=== PATIENT | male | born 1950 | race Caucasian/White ===

== ENCOUNTER 2018-04-01 08:25 | Inpatient (IN) | payer MEDICARE, BC ==
[2018-04-01] MEDS ORDERED: Aspirin 81 mg CHEW TAB* 81 MG TAB.CHEW PO ONE (09:38)
[2018-04-01] MEDS ORDERED: NS 0.9% 1000 ML* 1,000 ML IV SCH (09:45)
--- NOTE | 2018-04-01 09:55 | RAD ---
Indication: Chest pain. Single frontal view of the chest performed at 0945 hours was reviewed. Comparison is made with previous exam dated April 26, 2011. No mediastinal shift is noted. Heart is of normal size and configuration. Lung traore are clear. IMPRESSION: NO ACTIVE CARDIOPULMONARY DISEASE IS NOTED.
[2018-04-01 10:03] LABS: INR 0.93 (0.77-1.02)
[2018-04-01 10:10] LABS: ABS Basophils 0 10^3/ul (0-0.2); ABS Eosinophils 0.2 10^3/ul (0-0.6); ABS Lymphocytes 0.8 10^3/ul (1.0-4.8); ABS Monocytes 0.7 10^3/ul (0-0.8); ABS Neutrophils 3.7 10^3/ul (1.5-7.7); ABS Nucleated RBC 0 10^3/ul; Eosinophil % 4.4 % (0-6); Hematocrit 49 % (42-52); Hemoglobin 16.4 g/dl (14.0-18.0); Lymphocyte % 15.2 % (25-47); Mean Corpuscular HGB Conc 34 g/dl (31-36); Mean Corpuscular Hemoglobin 30 pg (27-31); Mean Corpuscular Volume 90 fL (80-94); Mean Platelet Volume 10.4 um3 (7.4-10.4); Nucleated Red Blood Cells % 0.1; Platelet Count 154 10^3/ul (150-450); Red Blood Count 5.41 10^6/ul (4.0-5.4); Red Cell Distribution Width 15 % (10.5-15); White Blood Count 5.5 10^3/ul (3.5-10.8)
[2018-04-01 10:11] LABS: EGFR Non-African American 69.9 (>60)
--- NOTE | 2018-04-01 12:56 | ED ---
Pablo Davila Stephanie, scribed for Chong Stein MD on 04/01/18 at 1022 . HPI Chest Pain - HPI Summary HPI Summary: The pt is a 67 y/o M presenting to the ED with c/o CP that began 1 week ago. The CP is located mid-sternally and radiates to the R shoulder. Symptoms include increased gas, diaphoresis and slight SOB. He denies nausea, LE edema and dyspnea at rest. His CP is aggravated by exertion and alleviated by rest. Last night his pain was rated as a 10/10 in severity. The pt was recently treated for PNA on February 14. He has been taking antacids to attempt to relieve his CP. - History of Current Complaint Chief Complaint: EDChestPainROMI Time Seen by Provider: 04/01/18 09:25 Hx Obtained From: Patient Onset/Duration: Started Weeks Ago - 1, Still Present Timing: Intermittent Current Severity: Mild Pain Intensity: 4 Pain Scale Used: 0-10 Numeric Chest Pain Location: Mid Sternal Chest Pain Radiates: Yes Chest Pain Radiates To:: Shoulder - R Character: Tightness Aggravating Factor(s): Exertion Alleviating Factor(s): Rest Associated Signs and Symptoms: Positive: Negative - dyspnea at rest, Chest Pain , Shortness of Breath, Diaphoresis. Negative: Nausea, Edema - LE - Allergy/Home Medications Allergies/Adverse Reactions: Allergies Allergy/AdvReac Type Severity Reaction Status Date / Time No Known Allergies Allergy Verified 04/01/18 08:57 Home Medications: Home Medications Metoprolol Succinate XL TAB* [Toprol XL TAB*] 25 mg PO BEDTIME 04/01/18 [ History Confirmed 04/01/18] PMH/Surg Hx/FS Hx/Imm Hx Cardiovascular History: Reports: Hx Hypercholesterolemia, Hx Hypertension - ON MEDS History: Reports: Hx Kidney Stones - LEFT, Other Problems/Disorders - ENLARGE PROSTATE Sensory History: Reports: Hx Contacts or Glasses - GLASSES Denies: Hx Hearing Aid Opthamlomology History: Reports: Hx Contacts or Glasses - GLASSES - Surgical History Surgery Procedure, Year, and Place: 07/02/2014 CYSTOSCOPY WITH LEFT STENT INSERTION, [facility] Hx Anesthesia Reactions: No Infectious Disease History: No Infectious Disease History: Denies: Traveled Outside the [place] in Last 30 Days - Family History Known Family History: Negative: Renal Disease - Social History Occupation: Retired Lives: With Family Alcohol Use: None Hx Substance Use: No Substance Use Type: Reports: None Hx Tobacco Use: No Smoking Status (MU): Never Smoked Tobacco Have You Smoked in the Last Year: No Review of Systems Positive: Skin Diaphoresis. Negative: Fever Positive: Chest Pain Respiratory: Negative - dyspnea at rest Positive: Shortness Of Breath Positive: Other - increased gas. Negative: Nausea Positive: Other - R shoulder pain. Negative: Edema - LE edema All Other Systems Reviewed And Are Negative: Yes Physical Exam - Summary Physical Exam Summary: General: well-appearing, no pain distress Skin: warm, color reflects adequate perfusion, dry Head: normal Eyes: EOMI, SAMSON ENT: normal Neck: supple, nontender Respiratory: CTA, breath sounds present Cardiovascular: RRR Abdomen: soft, nontender Bowel: present Musculoskeletal: normal, strength/ROM intact Neurological: sensory/motor intact, A&O x3 Psychological: affect/mood appropriate Triage Information Reviewed: Yes Vital Signs On Initial Exam: Initial Vitals Temp Pulse Resp BP Pulse Ox 97.6 F 67 16 123/83 97 04/01/18 08:32 04/01/18 08:32 04/01/18 08:32 04/01/18 08:32 04/01/18 08:32 Vital Signs Reviewed: Yes Diagnostics - Vital Signs Vital Signs Temp Pulse Resp BP Pulse Ox 04/01/18 08:32 97.6 F 67 16 123/83 97 - Laboratory Lab Results: Lab Results 04/01/18 04/01/18 04/01/18 Range/Units 09:21 09:40 09:40 WBC 5.5 (3.5-10.8) 10^3/ul RBC 5.41 H (4.0-5.4) 10^6/ul Hgb 16.4 (14.0-18.0) g/dl Hct 49 (42-52) % MCV 90 (80-94) fL MCH 30 (27-31) pg MCHC 34 (31-36) g/dl RDW 15 (10.5-15) % Plt Count 154 (150-450) 10^3/ul MPV 10.4 (7.4-10.4) um3 Neut % (Auto) 66.5 (38-83) % Lymph % (Auto) 15.2 L (25-47) % Rawlins % (Auto) 13.4 H (0-7) % Eos % (Auto) 4.4 (0-6) % Baso % (Auto) 0.5 (0-2) % Absolute Neuts (auto) 3.7 (1.5-7.7) 10^3/ul Absolute Lymphs (auto) 0.8 L (1.0-4.8) 10^3/ul Absolute Monos (auto) 0.7 (0-0.8) 10^3/ul Absolute Eos (auto) 0.2 (0-0.6) 10^3/ul Absolute Basos (auto) 0 (0-0.2) 10^3/ul Absolute Nucleated RBC 0 10^3/ul Nucleated RBC % 0.1 INR (Anticoag Therapy) (0.77-1.02) APTT (26.0-36.3) seconds D-Dimer, Quantitative (Less Than 230) ng/mL Sodium 139 (139-145) mmol/L Potassium 4.3 (3.5-5.0) mmol/L Chloride 109 (101-111) mmol/L Carbon Dioxide 24 (22-32) mmol/L Anion Gap 6 (2-11) mmol/L BUN 19 (6-24) mg/dL Creatinine 1.06 (0.67-1.17) mg/dL Est GFR ( Amer) 89.9 (>60) Est GFR (Non-Af Amer) 69.9 (>60) BUN/Creatinine Ratio 17.9 (8-20) Glucose 105 H (70-100) mg/dL Lactic Acid 1.6 (0.5-2.0) mmol/L Calcium 9.0 (8.6-10.3) mg/dL Magnesium 1.9 (1.9-2.7) mg/dL Total Bilirubin 1.20 H (0.2-1.0) mg/dL AST 32 (13-39) U/L ALT 41 (7-52) U/L Alkaline Phosphatase 87 (34-104) U/L Total Creatine Kinase 195 (10-223) U/L CK-MB (CK-2) 4.1 (0.6-6.3) ng/mL Troponin I 0.01 (<0.04) ng/mL C-Reactive Protein 2.32 (< 5.00) mg/L B-Natriuretic Peptide ( - 100) pg/mL Total Protein 6.6 (6.4-8.9) g/dL Albumin 3.9 (3.2-5.2) g/dL Globulin 2.7 (2-4) g/dL Albumin/Globulin Ratio 1.4 (1-3) Lipase 27 (11.0-82.0) U/L TSH 0.66 (0.34-5.60) mcIU/mL 04/01/18 04/01/18 Range/Units 09:41 09:41 WBC (3.5-10.8) 10^3/ul RBC (4.0-5.4) 10^6/ul Hgb (14.0-18.0) g/dl Hct (42-52) % MCV (80-94) fL MCH (27-31) pg MCHC (31-36) g/dl RDW (10.5-15) % Plt Count (150-450) 10^3/ul MPV (7.4-10.4) um3 Neut % (Auto) (38-83) % Lymph % (Auto) (25-47) % Rawlins % (Auto) (0-7) % Eos % (Auto) (0-6) % Baso % (Auto) (0-2) % Absolute Neuts (auto) (1.5-7.7) 10^3/ul Absolute Lymphs (auto) (1.0-4.8) 10^3/ul Absolute Monos (auto) (0-0.8) 10^3/ul Absolute Eos (auto) (0-0.6) 10^3/ul Absolute Basos (auto) (0-0.2) 10^3/ul Absolute Nucleated RBC 10^3/ul Nucleated RBC % INR (Anticoag Therapy) 0.93 (0.77-1.02) APTT 32.4 (26.0-36.3) seconds D-Dimer, Quantitative < 200 (Less Than 230) ng/mL Sodium (139-145) mmol/L Potassium (3.5-5.0) mmol/L Chloride (101-111) mmol/L Carbon Dioxide (22-32) mmol/L Anion Gap (2-11) mmol/L BUN (6-24) mg/dL Creatinine (0.67-1.17) mg/dL Est GFR ( Amer) (>60) Est GFR (Non-Af Amer) (>60) BUN/Creatinine Ratio (8-20) Glucose (70-100) mg/dL Lactic Acid (0.5-2.0) mmol/L Calcium (8.6-10.3) mg/dL Magnesium (1.9-2.7) mg/dL Total Bilirubin (0.2-1.0) mg/dL AST (13-39) U/L ALT (7-52) U/L Alkaline Phosphatase (34-104) U/L Total Creatine Kinase (10-223) U/L CK-MB (CK-2) (0.6-6.3) ng/mL Troponin I (<0.04) ng/mL C-Reactive Protein (< 5.00) mg/L B-Natriuretic Peptide 35 ( - 100) pg/mL Total Protein (6.4-8.9) g/dL Albumin (3.2-5.2) g/dL Globulin (2-4) g/dL Albumin/Globulin Ratio (1-3) Lipase (11.0-82.0) U/L TSH (0.34-5.60) mcIU/mL Result Diagrams: 04/01/18 09:21 04/01/18 09:40 Lab Statement: Any lab studies that have been ordered have been reviewed, and results considered in the medical decision making process. - Radiology CXR Xray Interpretation: No Acute Changes Radiology Interpretation Completed By: Radiologist - NO ACTIVE CARDIOPULMONARY DISEASE IS NOTED. ED physician has reviewed this report. - EKG 08:51 Cardiac Rate: NL EKG Rhythm: Sinus Rhythm - [address] Segment: Normal Ectopy: None Re-Evaluation - Re-Evaluation First Eval Re-Evaluation Time: 11:25 Change: Unchanged - ED physician discussed plan of admission with the pt and the pt understands and agrees. Chest Pain Course/Dx - Course Course Of Treatment: ADMIT HOSPITALIST - Diagnoses Provider Diagnoses: Chest pain - Provider Notifications Discussed Care Of Patient With: Teresa Montano Time Discussed With Above Provider: 11:23 Instructed by Provider To: Admit As Inpatient Discharge - Sign-Out/Discharge Documenting (check all that apply): Discharge/Admit/Transfer - Discharge Plan Condition: Stable Disposition: ADMITTED TO [facility] - Billing Disposition and Condition Condition: STABLE [place] [facility] [place] The documentation as recorded by the Pablo flores Stephanie accurately reflects the service I personally performed and the decisions made by me, Chong Stein MD.
[2018-04-01] MEDS: Heparin VIAL(*) 5000 UNITS/ML VIAL (FIVE THOUSAND) SUBCUT SCH ×2 (14:02→20:03)
[2018-04-01 17:27] LABS: Urine Appearance Clear; Urine Blood 1+ (Negative); Urine Color Yellow; Urine Ketones Negative (Negative); Urine Protein Negative (Negative); Urine Specific Gravity 1.023 (1.010-1.030); Urine Urobilinogen Negative (Negative)
--- NOTE | 2018-04-01 18:51 | HP ---
CC: Dr. Tony Phillips.* HISTORY AND PHYSICAL: DATE OF ADMISSION: 04/01/18 PRIMARY CARE PROVIDER: Dr. Tony Phillips. ATTENDING PHYSICIAN: Teresa Montano DO * (dictated by Viridiana Baires NP). CHIEF COMPLAINT: Chest pain. HISTORY OF PRESENT ILLNESS: Mr. Fox is a 67-year-old male with past medical history significant for coronary artery disease, hyperlipidemia, hypertension, prediabetes mellitus who approximately one week ago began having intermittent chest pain. The patient describes the pain has been located in his mid sternum, radiating to his left shoulder, he reports symptoms of increased gas and belching, diaphoresis when he is having pain and slight shortness of breath that he was not having previously. He denies any associated nausea, lower extremity edema, or dyspnea at rest. He finds that his chest pain is aggravated with exertion and generally relieved by rest but he has been intermittently having chest pain at rest. He has not tried any nitro as he states the pain has not been aggravating enough to try nitro. The patient states that he recently he was treated for pneumonia the end of January. Over the past week, he has been taking antacids to try to relieve his indigestion. He describes his pain as a sharp sternal discomfort. Denies any recent fevers, chills, cough, nausea, vomiting, diarrhea, urinary symptoms. Back in 2010, the patient had a cardiac catheterization showing a 10% to 15% ostial LAD stenosis, 50% proximal LAD at the worst (45% to 50%), mild to moderate proximal and mid RCA stenosis 25% to 30%, and mild 25% lesion in mid portion of the first diagonal branch. The end of 2015, the patient was seen by Cardiology and underwent an echo and stress test. At the time, he was complaining of postprandial chest pain. He was suspected to have a indigestion component and he was started on omeprazole. The patient states he has been taking omeprazole since then. The patient also notes that he is prediabetic. He previously had a hemoglobin A1c around 7 and states that has improved since starting on metformin. Due to his chest pain, he presented to the emergency room for further evaluation of his symptoms. While in the emergency room, the patient received aspirin. He had an EKG showing sinus rhythm and no acute signs of ischemia. He had chest x-ray showing no cardiopulmonary disease. He had a d-dimer less than 200, troponin of 0.01, TSH 0.66. His total bilirubin is elevated but it appears to be chronically elevated and is lower than it has been previously. His other labs are unremarkable. Due to the patient's chest pain, the hospitalists were asked to evaluate the patient for admission. PAST MEDICAL HISTORY: 1. Hypertension. 2. Hyperlipidemia. 3. Coronary artery disease. 4. Prediabetes mellitus. PAST SURGICAL HISTORY: 1. Status post cardiac catheterization in 2010. 2. Status post cystoscopy and lithotripsy in 2013. 3. Status post stent insertion and removal in 2013. MEDICATIONS: 1. Metformin 500 mg oral daily. 2. Omeprazole 20 mg oral daily. 3. Metoprolol succinate 25 mg oral daily. 4. Lisinopril 5 mg oral daily. 5. Finasteride 5 mg oral daily. 6. Atorvastatin 10 mg oral daily at bedtime. 7. Aspirin 81 mg oral daily. 8. Nitro 0.4 mg sublingual every 5 minutes as needed for chest pain. 9. Fish oil 2000 units oral daily. ALLERGIES: No known drug allergies. FAMILY HISTORY: The patient reports his father had an W[place] in his 60s and his mother passed in her late 80s from an [place]. He reports significant diabetes mellitus on his father's side of the family. The patient reports two half brothers with prostate cancer. SOCIAL HISTORY: The patient denies tobacco, alcohol, or recreational drug use. His , Alysia Fox and son, Chong Fox, will be his surrogate decision maker in the event he is unable to make decisions for himself. REVIEW OF SYSTEMS: I performed an 11-point review of systems. All the pertinent positive and negatives are mentioned in the history of present illness. The remaining review of systems are negative. PHYSICAL EXAMINATION GENERAL APPEARANCE: The patient is alert, pleasant appears to be in no acute distress. VITAL SIGNS: Temperature 97.6, heart rate 59, respiratory rate 15, O2 sat 98% on room air, blood pressure 143/97. HEENT: Normocephalic, atraumatic. Pupils are equal, round and reactive to light. Extraocular movements are intact. RESPIRATORY: There is no accessory muscle use and the lungs are clear to auscultation bilateral. CARDIOVASCULAR: Regular rate and rhythm. S1, S2 present. There are no murmurs , rubs, or gallops heard. ABDOMEN: Soft, nontender, nondistended. Bowel sounds present x4. EXTREMITIES: There is no lower extremity edema. DP and PT pulses are 2+ and symmetric. MUSCULOSKELETAL: There is no clubbing or cyanosis noted. The patient exhibits good strength in all extremities. NEUROLOGIC: The patient is alert and oriented x4. Cranial nerves II through XII are grossly intact. PSYCHOLOGICAL: The patient is calm and cooperative. SKIN: There are no rashes or abnormalities seen. DIAGNOSTIC STUDIES/LABORATORY DATA: Sodium 139, potassium 4.3, chloride 109, CO2 of 24, BUN 19, creatinine 1.06, and glucose 105. White blood cell count 5.5 , hemoglobin 16.4, hematocrit 49, and platelet count 154. D-dimer less than 200 , troponin 0.01, TSH 0.66. Total bilirubin 1.20. EKG shows a sinus rhythm and a rate of 65. There are no acute signs of ischemia. This EKG is similar to previous from 04/27/11. Chest x-ray from today. Radiologist's impression: No cardiopulmonary disease. IMPRESSION: Mr. Fox is a 67-year-old male with past medical history significant for coronary artery disease, hypertension, hyperlipidemia, prediabetes mellitus who presents to the emergency room with complaints of intermittent chest pain with exertion for approximately a week. He will be admitted as an observation for chest pain, rule out acute coronary syndrome. ASSESSMENT/PLAN: 1. Chest pain. The patient will be admitted to rule out acute coronary syndrome. We are going to trend his troponins. His initial troponin is 0.01. We will repeat an EKG in the morning. We will have the patient do an exercise nuclear stress test in the morning. I did side consult Cardiology to ask if they thought the patient would be appropriate to go right to cath instead of having a stress test, since there is high pretest probability of a positive stress test. Cardiology recommended getting a stress test in the morning unless the patient bumps his troponins and then he get a cardiac catheterization instead. We will check fasting lipids in the morning. The patient will be continued on his home aspirin, atorvastatin, and metoprolol. CHELSIE score is 3. 2. History of coronary artery disease as stated in the HPI. The patient has known CAD. He will be continued on his home metoprolol, atorvastatin, and aspirin. 3. Hypertension. The patient will be continued on his home lisinopril and metoprolol. 4. Hyperlipidemia. The patient will be continued on his home atorvastatin. We will check fasting lipids in the morning and adjust his statin accordingly. 5. Prediabetes. We will had hemoglobin A1c onto his ER labs and hold his metformin and do glucose checks a.c. and h.s. If he has elevated glucose, I will start him on a lispro sliding scale. 6. Gastroesophageal reflux disease. The patient will be continued on his home omeprazole. 7. Obesity. BMI is 30. 8. Fluids, electrolytes, and nutrition. The patient will be on heart healthy diet. No caffeine. He will be NPO after midnight for stress test in the morning. 9. Code status. Full code. 10. DVT prophylaxis. He is high risk and we have subcu heparin. 11. Disposition. Observation. TIME SPENT: Time for this admission was approximately 60 minutes, greater than half of that was spent with the patient discussing medications, past medical history, and the events leading up to his arrival today, and performing physical examination. Case has been reviewed with the attending Dr. Montano, who agrees with the plan of care. Reviewed by KHURRAM WINKLER 04/04/18 1312 [id number]/[facility] #: [id number] [place]
[2018-04-01] MEDS: Metoprolol Succinate XL TAB* 25 MG PO SCH (20:03)
[2018-04-01] MEDS: Atorvastatin* 10 MG TAB PO SCH (20:03)
[2018-04-02] MEDS: Heparin VIAL(*) 5000 UNITS/ML VIAL (FIVE THOUSAND) SUBCUT SCH ×3 (05:36→20:51)
[2018-04-02] MEDS: Aspirin EC TAB* 81 MG TAB.EC PO SCH (08:25)
[2018-04-02] MEDS: Omeprazole CAP* 20 MG PO SCH (08:27)
[2018-04-02] MEDS ORDERED: Lisinopril TAB* 5 MG PO SCH (09:00)
[2018-04-02] MEDS ORDERED: Finasteride TAB* 5 MG PO SCH (09:00)
[2018-04-02] MEDS ORDERED: Regadenoson* 0.4 MG/5 ML SYRINGE ONE (12:27)
[2018-04-02] MEDS ORDERED: Aminophylline IV* 25 MG/ML 10 ML VIAL ONE (12:27)
--- NOTE | 2018-04-02 13:43 | RAD ---
HISTORY: Chest pain, hypertension, hyperlipidemia COMPARISONS: April 28, 2011 TECHNIQUE: A 1 day stress/rest myocardial perfusion study was performed, with pharmacologic stress. The stress portion was monitored by Dr. Felix. Gated SPECT imaging was performed, with CT-based attenuation correction DOSE: Stress: Technetium 99m tetrofosmin, 25.8 millicuries, injected at 12:31 PM on April 02, 2018 Rest: Technetium 99m tetrofosmin, 10.4 millicuries, injected at 6:59 AM on April 02, 2018 Pharmacologic agent: Lexiscan FINDINGS: CARDIAC MONITORING: Downsloping ST depression EF: 54% TID: 1.08 MOTION: There is septal dyskinesia PERFUSION: There is a large reversible defect of the anterior wall, consistent with, with a small fixed defect of the apex. OTHER: None IMPRESSION: 1. THERE IS A LARGE FIXED DEFECT OF THE ANTERIOR WALL CONSISTENT WITH ISCHEMIA. 2. THERE IS A SMALL FIXED DEFECT OF THE APEX WHICH MAY OR BE PHYSIOLOGIC THINNING OR REFLECTIVE PREVIOUS INFARCT. 3. THERE IS SEPTAL DYSKINESIA ASSESSMENT: HIGH RISK. Based on imaging criteria from ACC/AHA 2002. Guideline Update for the Management of Patient's with Chronic Stable Angina, table 23. Noninvasive Risk Stratification. CPT II Codes: 3570F
[2018-04-02] MEDS ORDERED: Dextrose 50% Syringe 50 ML* 25 GM/50 ML SYRINGE IV PUSH PRN (13:59)
--- NOTE | 2018-04-02 14:03 | PN ---
Subjective Date of Service: 04/02/18 Interval History: Patient reports he is feeling better today. He did have CP during stress test but states it resolved once he was done. He currently offers no complaints. Objective Active Medications: Aspirin (Aspirin Ec Tab*) 81 mg PO DAILY [facility] Last Admin: 04/02/18 08:25 Dose: 81 mg Atorvastatin Calcium (Lipitor*) 10 mg PO BEDTIME [facility] Last Admin: 04/01/18 20:03 Dose: 10 mg Dextrose (D50w Syringe 50 Ml*) 12.5 gm IV PUSH .FOR FS < 60 - SS PRN PRN Reason: FS < 60 Finasteride (Proscar Tab*) 5 mg PO DAILY [facility] Heparin Sodium (Porcine) (Heparin Vial(*)) 5,000 units SUBCUT Q8HR [facility] Last Admin: 04/02/18 05:36 Dose: Not Given Insulin Human Lispro (Humalog*) 0 units SUBCUT ACHS [facility] PRN Reason: Protocol Lisinopril (Prinivil Tab*) 5 mg PO DAILY [facility] Metoprolol Succinate (Toprol Xl Tab*) 25 mg PO BEDTIME [facility] Last Admin: 04/01/18 20:03 Dose: 25 mg Omeprazole (Prilosec Cap*) 20 mg PO DAILY@0730 [facility] Last Admin: 04/02/18 08:27 Dose: Not Given Vital Signs - 8 hr 04/02/18 04/02/18 07:19 11:23 Temperature 97.3 F 97.4 F Pulse Rate 62 58 Respiratory 16 16 Rate Blood Pressure 133/87 131/83 (mmHg) O2 Sat by Pulse 98 97 Oximetry Oxygen Devices in Use Now: None Appearance: 67 yo male A+O x3 in NAD Eyes: No Scleral Icterus, PERRLA Ears/Nose/Mouth/Throat: NL Teeth, Lips, Gums, Mucous Membranes Moist Neck: NL Appearance and Movements; NL JVP Respiratory: Symmetrical Chest Expansion and Respiratory Effort, Clear to Auscultation Cardiovascular: NL Sounds; No Murmurs; No JVD, RRR, No Edema Abdominal: NL Sounds; No Tenderness; No Distention Extremities: No Edema, No Clubbing, Cyanosis Skin: No Rash or Ulcers, No Nodules or Sclerosis Neurological: Alert and Oriented x 3, NL Sensation, NL Gait, NL Muscle Strength and Tone Lines/Tubes/Other Access: Clean, Dry and Intact Peripheral IV Nutrition: Taking PO's Result Diagrams: 04/01/18 09:21 04/01/18 09:40 Additional Lab and Data: Lab Results 04/01/18 04/01/18 04/01/18 Range/Units 09:21 09:40 09:40 WBC 5.5 (3.5-10.8) 10^3/ul RBC 5.41 H (4.0-5.4) 10^6/ul Hgb 16.4 (14.0-18.0) g/dl Hct 49 (42-52) % MCV 90 (80-94) fL MCH 30 (27-31) pg MCHC 34 (31-36) g/dl RDW 15 (10.5-15) % Plt Count 154 (150-450) 10^3/ul MPV 10.4 (7.4-10.4) um3 Neut % (Auto) 66.5 (38-83) % Lymph % (Auto) 15.2 L (25-47) % Robertson % (Auto) 13.4 H (0-7) % Eos % (Auto) 4.4 (0-6) % Baso % (Auto) 0.5 (0-2) % Absolute Neuts (auto) 3.7 (1.5-7.7) 10^3/ul Absolute Lymphs (auto) 0.8 L (1.0-4.8) 10^3/ul Absolute Monos (auto) 0.7 (0-0.8) 10^3/ul Absolute Eos (auto) 0.2 (0-0.6) 10^3/ul Absolute Basos (auto) 0 (0-0.2) 10^3/ul Absolute Nucleated RBC 0 10^3/ul Nucleated RBC % 0.1 INR (Anticoag Therapy) (0.77-1.02) APTT (26.0-36.3) seconds D-Dimer, Quantitative (Less Than 230) ng/mL Sodium 139 (139-145) mmol/L Potassium 4.3 (3.5-5.0) mmol/L Chloride 109 (101-111) mmol/L Carbon Dioxide 24 (22-32) mmol/L Anion Gap 6 (2-11) mmol/L BUN 19 (6-24) mg/dL Creatinine 1.06 (0.67-1.17) mg/dL Est GFR ( Amer) 89.9 (>60) Est GFR (Non-Af Amer) 69.9 (>60) BUN/Creatinine Ratio 17.9 (8-20) Glucose 105 H (70-100) mg/dL Lactic Acid 1.6 (0.5-2.0) mmol/L Calcium 9.0 (8.6-10.3) mg/dL Magnesium 1.9 (1.9-2.7) mg/dL Total Bilirubin 1.20 H (0.2-1.0) mg/dL AST 32 (13-39) U/L ALT 41 (7-52) U/L Alkaline Phosphatase 87 (34-104) U/L Total Creatine Kinase 195 (10-223) U/L CK-MB (CK-2) 4.1 (0.6-6.3) ng/mL Troponin I 0.01 (<0.04) ng/mL C-Reactive Protein 2.32 (< 5.00) mg/L B-Natriuretic Peptide ( - 100) pg/mL Total Protein 6.6 (6.4-8.9) g/dL Albumin 3.9 (3.2-5.2) g/dL Globulin 2.7 (2-4) g/dL Albumin/Globulin Ratio 1.4 (1-3) Lipase 27 (11.0-82.0) U/L TSH 0.66 (0.34-5.60) mcIU/mL 04/01/18 04/01/18 Range/Units 09:41 09:41 WBC (3.5-10.8) 10^3/ul RBC (4.0-5.4) 10^6/ul Hgb (14.0-18.0) g/dl Hct (42-52) % MCV (80-94) fL MCH (27-31) pg MCHC (31-36) g/dl RDW (10.5-15) % Plt Count (150-450) 10^3/ul MPV (7.4-10.4) um3 Neut % (Auto) (38-83) % Lymph % (Auto) (25-47) % Robertson % (Auto) (0-7) % Eos % (Auto) (0-6) % Baso % (Auto) (0-2) % Absolute Neuts (auto) (1.5-7.7) 10^3/ul Absolute Lymphs (auto) (1.0-4.8) 10^3/ul Absolute Monos (auto) (0-0.8) 10^3/ul Absolute Eos (auto) (0-0.6) 10^3/ul Absolute Basos (auto) (0-0.2) 10^3/ul Absolute Nucleated RBC 10^3/ul Nucleated RBC % INR (Anticoag Therapy) 0.93 (0.77-1.02) APTT 32.4 (26.0-36.3) seconds D-Dimer, Quantitative < 200 (Less Than 230) ng/mL Sodium (139-145) mmol/L Potassium (3.5-5.0) mmol/L Chloride (101-111) mmol/L Carbon Dioxide (22-32) mmol/L Anion Gap (2-11) mmol/L BUN (6-24) mg/dL Creatinine (0.67-1.17) mg/dL Est GFR ( Amer) (>60) Est GFR (Non-Af Amer) (>60) BUN/Creatinine Ratio (8-20) Glucose (70-100) mg/dL Lactic Acid (0.5-2.0) mmol/L Calcium (8.6-10.3) mg/dL Magnesium (1.9-2.7) mg/dL Total Bilirubin (0.2-1.0) mg/dL AST (13-39) U/L ALT (7-52) U/L Alkaline Phosphatase (34-104) U/L Total Creatine Kinase (10-223) U/L CK-MB (CK-2) (0.6-6.3) ng/mL Troponin I (<0.04) ng/mL C-Reactive Protein (< 5.00) mg/L B-Natriuretic Peptide 35 ( - 100) pg/mL Total Protein (6.4-8.9) g/dL Albumin (3.2-5.2) g/dL Globulin (2-4) g/dL Albumin/Globulin Ratio (1-3) Lipase (11.0-82.0) U/L TSH (0.34-5.60) mcIU/mL Assess/Plan/Problems-Billing Assessment: Mr. Fox is a 67 yo male with a PMH of diabetes, CAD with cardiac catherization in 2010 showing mild to moderate disease, HTN, HLD, Pre- diabetes on metformin who presented on 03/31 with reports of intermittent chest pain for 1 week. - Patient Problems (1) Chest pain Comment: - Reports CP resolved since admission up until stress test then developed CP during stress. His NM cardiac stress showing him to be high risk with large area of reversible area with ischemia - negative troponins - Appreciate cardiology consult, Dr. Winchester, plan for cardiac catherization in am. - NPO after midnight. - contonie BB, ASA, lisinopril, statin, nitro prn (2) Diabetes Comment: HbgA1C 5.5 - currently on metformin at home. Hold metformin. Trend FSBG's - well controlled. (3) HLD (hyperlipidemia) Comment: statin (4) HTN (hypertension) Comment: - controlled. Continue lisinopril, BB (5) DVT prophylaxis Comment: HSQ (6) Full code status Status and Disposition: inpatient with chest pain and high risk stress test/ Plan for cardiac cath in am.
[2018-04-02] MEDS: Lisinopril TAB* 5 MG PO SCH (15:28)
[2018-04-02] MEDS: Finasteride TAB* 5 MG PO SCH (15:28)
[2018-04-02] MEDS ORDERED: Nitroglycerin TAB 0.4 MG* 0.4 MG TAB SL PRN (15:36)
[2018-04-02] MEDS: Insulin LISPRO* 1 UNITS UNIT SUBCUT SCH ×2 (17:13→20:57)
[2018-04-02] MEDS: Metoprolol Succinate XL TAB* 25 MG PO SCH (20:51)
[2018-04-02] MEDS: Atorvastatin* 10 MG TAB PO SCH (20:51)
--- NOTE | 2018-04-02 20:57 | CONS ---
CC: Dr. Saravanan Sparks; Dr. Tony Phillips at [place] * CARDIOLOGY CONSULTATION: DATE OF CONSULT: 04/02/18 INDICATION FOR CONSULTATION: Unstable angina, coronary artery disease. HISTORY OF PRESENT ILLNESS: The patient is a 67-year-old gentleman with a history of known moderate coronary artery disease, who comes in today to the hospital because of crescendo angina. The patient states that over the last week or so he has been having worse and worth angina with less activity. He has actually had a couple of episodes of rest angina that have lasted just about 5 minutes or so. He describes it as a heaviness in his chest radiates to his shoulder. He has never had any prolonged episodes of angina. The patient was admitted to the hospital. His EKG was unremarkable. His troponin levels were negative. The patient underwent an exercise nuclear stress test today. He exercised for 6 minutes. He did not reach target heart rate; however, he had severe chest pain and ST segment depressions. His nuclear images showed a large area of ischemia to his anterior wall that is completely reversible. His LV function was normal at 54%. The patient had a cardiac catheterization back in 2010, which demonstrated an ostial LAD lesion of 10% to 15%, 50% mid LAD lesion and a proximal right coronary artery lesion of 25%. The patient has been on medical therapy since then. The patient did undergo an exercise nuclear stress test in September 2016. At that time, it showed normal perfusion throughout the myocardium and normal LV function. PAST MEDICAL HISTORY: Significant for: 1. Diabetes. 2. Hypertension. 3. Coronary artery disease as described above. PAST SURGICAL HISTORY: None, except for the cardiac catheterization. OUTPATIENT MEDICATIONS: 1. Aspirin 81 mg a day. 2. Lipitor 10 mg a day. 3. Metoprolol succinate 25 mg a day. 4. Fish oil tablet. 5. Finasteride 5 mg a day. 6. Metformin 500 mg a day. 7. Lisinopril 5 mg a day. 8. Omeprazole 20 mg a day. ALLERGIES: No known drug allergies. SOCIAL HISTORY: He is . 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 He denies tobacco use. Denies alcohol use. He does get regular exercise. FAMILY HISTORY: Positive for diabetes and heart disease. REVIEW OF SYSTEMS: Negative for fevers and chills. Negative for changes in bowel or bladder habits. PHYSICAL EXAM: Height is 6 feet, weight 224 pounds. Temperature 97.4, heart rate is 66, blood pressure 137/80, respiratory rate is 20, oxygen saturation 100 % on room air. Sclerae anicteric. Oropharynx is pink without erythema. Carotids are 2+ without bruits. JVD is normal. Thyroid is normal. Cardiac Exam: S1, S2 without any murmurs, rubs, or gallops. Lungs are clear to auscultation bilaterally. There is no dullness to percussion. Abdomen is soft, nontender, nondistended with normoactive bowel sounds. Extremities show no edema. He has 2+ pulses throughout. The patient is awake, alert and oriented. He moves all 4 extremities equally. DIAGNOSTIC STUDIES/LAB DATA: CBC within normal limits. Chemistries within normal limits. BUN 19, creatinine 1.06. Total cholesterol 121, LDL cholesterol 72, HDL cholesterol of 33. EKG demonstrates normal sinus rhythm with normal axis intervals. IMPRESSION: This is a 67-year-old gentleman with a history of known coronary artery disease who comes in today with crescendo angina. The patient is ruled out for a myocardial infarction. His EKG showed no ischemic changes. His stress test showed a high risk features of low exercise tolerance, positive chest pain with exertion and a larger ischemia to his anterior wall. The patient will continue on his outpatient medications. The patient will undergo cardiac catheterization. The risks and benefits of this were described in detail. Again, the patient had a cardiac catheterization in 2010. Further recommendations pending the results of the catheterization. [id number]/[facility] #: [id number] MTDD
--- NOTE | 2018-04-02 21:18 | PTEDU ---
Patient Name: MOISÉS SANABRIA SANABRIAMOISÉS Castellanos selected video: Cardiac Catheterization to view on 04/02/2018 at 9:17:47 PM from MED [id number]
[2018-04-02] MEDS ORDERED: NS 0.9% 1000 ML* 1,000 ML IV SCH (23:55)
[2018-04-03] MEDS: Heparin VIAL(*) 5000 UNITS/ML VIAL (FIVE THOUSAND) SUBCUT SCH (05:13)
[2018-04-03 05:47] LABS: ABS Basophils 0 10^3/ul (0-0.2); ABS Eosinophils 0.4 10^3/ul (0-0.6); ABS Lymphocytes 1.9 10^3/ul (1.0-4.8); ABS Monocytes 0.7 10^3/ul (0-0.8); ABS Neutrophils 3.5 10^3/ul (1.5-7.7); ABS Nucleated RBC 0 10^3/ul; Eosinophil % 5.8 % (0-6); Hematocrit 51 % (42-52); Hemoglobin 17.2 g/dl (14.0-18.0); Lymphocyte % 28.9 % (25-47); Mean Corpuscular HGB Conc 34 g/dl (31-36); Mean Corpuscular Hemoglobin 30 pg (27-31); Mean Corpuscular Volume 90 fL (80-94); Nucleated Red Blood Cells % 0.4; Platelet Count 152 10^3/ul (150-450); Red Blood Count 5.69 10^6/ul (4.0-5.4); Red Cell Distribution Width 15 % (10.5-15); White Blood Count 6.5 10^3/ul (3.5-10.8)
[2018-04-03 06:03] LABS: EGFR Non-African American 71.5 (>60)
[2018-04-03] MEDS: Omeprazole CAP* 20 MG PO SCH (07:51)
[2018-04-03] MEDS: Insulin LISPRO* 1 UNITS UNIT SUBCUT SCH ×4 (07:52→21:10)
[2018-04-03] MEDS ORDERED: Heparin(*) 1000 UNIT/ML 10 ML VIAL CATH LAB IV ONE ×3 (08:12→09:06)
[2018-04-03] MEDS ORDERED: VERAPAMIL 2.5 MG/ML 2 ML VIAL ** 5 mg/2 ml ONE ×2 (08:12→08:21)
[2018-04-03] MEDS ORDERED: fentaNYL* 50 MCG/ML 2 ML VIAL (100 MCG VIAL) ONE (08:12)
[2018-04-03] MEDS ORDERED: Midazolam* 1 MG/ML 10 ML VIAL (10 MG) ONE (08:12)
[2018-04-03] MEDS ORDERED: Heparin 2 UNITS/ML IVPREMIX* 3,000 ML IV ONE (08:13)
[2018-04-03] MEDS ORDERED: nitroGLYCERIN DRIP* 25,000 MCG/250 ML BTL ONE (08:13)
[2018-04-03] MEDS ORDERED: Lidocaine 1% INJ* 10 MG/ML 30 ML SDV ONE (08:13)
[2018-04-03] MEDS ORDERED: Iohexol 300 (CONTRAST) 10 ML SDV ONE (08:13)
[2018-04-03] MEDS ORDERED: Iohexol 350 (CONTRAST) 200 ML MDV IV ONE (08:13)
[2018-04-03] MEDS ORDERED: Aspirin 81 mg CHEW TAB* 81 MG TAB.CHEW ONE (08:18)
--- NOTE | 2018-04-03 08:42 | PN ---
Subjective Date of Service: 04/03/18 Interval History: Mr. 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 Objective Active Medications: Aspirin (Aspirin Ec Tab*) 81 mg PO DAILY [facility] Atorvastatin Calcium (Lipitor*) 10 mg PO BEDTIME [facility] Dextrose (D50w Syringe 50 Ml*) 12.5 gm IV PUSH .FOR FS < 60 - SS PRN Finasteride (Proscar Tab*) 5 mg PO DAILY@1400 [facility] Heparin Sodium (Porcine) (Heparin Vial(*)) 5,000 units SUBCUT Q8HR [facility] Sodium Chloride (Ns 0.9% 1000 Ml*) 1,000 mls @ 75 mls/hr IV .per rate [facility] Insulin Human Lispro (Humalog*) 0 units SUBCUT ACHS [facility] Lisinopril (Prinivil Tab*) 5 mg PO DAILY@1400 [facility] Metoprolol Succinate (Toprol Xl Tab*) 25 mg PO BEDTIME [facility] Nitroglycerin (Nitroglycerin Tab 0.4 Mg*) 0.4 mg SL Q5M PRN Omeprazole (Prilosec Cap*) 20 mg PO DAILY@0730 [facility] Vital Signs: Temp Pulse Resp BP Pulse Ox 97.4 F 62 16 118/78 97 04/03/18 03:43 04/03/18 03:43 04/03/18 03:43 04/03/18 03:43 04/03/18 03:43 Oxygen Devices in Use Now: None Appearance: Male lying in bed in NAD Eyes: No Scleral Icterus Ears/Nose/Mouth/Throat: NL Teeth, Lips, Gums Neck: NL Appearance and Movements; NL JVP Respiratory: Symmetrical Chest Expansion and Respiratory Effort, Clear to Auscultation Cardiovascular: NL Sounds; No Murmurs; No JVD, No Edema Abdominal: NL Sounds; No Tenderness; No Distention Extremities: No Edema Skin: No Rash or Ulcers Neurological: Alert and Oriented x 3, NL Muscle Strength and Tone Nutrition: Taking PO's Result Diagrams: 04/03/18 05:04 04/03/18 05:04 Additional Lab and Data: . Assess/Plan/Problems-Billing Assessment: Mr. Fox is a 67 yo male with a PMH of diabetes, CAD with cardiac catherization in 2010 showing mild to moderate disease, HTN, HLD, Pre-diabetes on metformin who presented on 03/31 with reports of intermittent chest pain for 1 week, now s/p cath with stent to LAD. - Patient Problems (1) Chest pain Comment: - S/P cath with stent to LAD. - Continue BB, ASA, lisinopril, statin, nitro and brilinta prn (2) HTN (hypertension) Comment: - Controlled. - Continue lisinopril and metoprolol. (3) HLD (hyperlipidemia) Comment: - Continue atorvastatin. (4) Diabetes Comment: - HbgA1C 5.5 - Hold metformin. (5) Full code status Comment: Status and Disposition: Inpatient. Anticipate discharge to home when medically stable.
[2018-04-03] MEDS ORDERED: Nitroglycerin TAB 0.4 MG* 0.4 MG TAB ONE (09:04)
[2018-04-03] MEDS: Aspirin EC TAB* 81 MG TAB.EC PO SCH (09:10)
[2018-04-03] MEDS ORDERED: Ticagrelor* 90 MG TAB PO ONE (09:11)
[2018-04-03] MEDS ORDERED: Nitroglycerin TAB 0.4 MG* 0.4 MG TAB SL PRN (09:58)
[2018-04-03] MEDS ORDERED: NS 0.9% 1000 ML* 1,000 ML IV SCH (10:00)
[2018-04-03] MEDS: Lisinopril TAB* 5 MG PO SCH (15:09)
[2018-04-03] MEDS: Finasteride TAB* 5 MG PO SCH (15:09)
[2018-04-03] MEDS: Ticagrelor* 90 MG TAB PO SCH (21:10)
[2018-04-03] MEDS: Atorvastatin* 10 MG TAB PO SCH (21:10)
[2018-04-03] MEDS: Metoprolol Succinate XL TAB* 25 MG PO SCH (21:10)
[2018-04-04 06:14] LABS: EGFR Non-African American 73.1 (>60)
--- NOTE | 2018-04-04 07:47 | PN ---
Subjective Date of Service: 04/04/18 Interval History: Mr. Fox denies complaint and is eager for discharge to home. He specifically denies chest pain, SOB, nausea, or abdominal pain. Objective Active Medications: Aspirin (Aspirin Ec Tab*) 81 mg PO DAILY [facility] Atorvastatin Calcium (Lipitor*) 10 mg PO BEDTIME [facility] Dextrose (D50w Syringe 50 Ml*) 12.5 gm IV PUSH .FOR FS < 60 - SS PRN Finasteride (Proscar Tab*) 5 mg PO DAILY@1400 [facility] Insulin Human Lispro (Humalog*) 0 units SUBCUT ACHS [facility] Lisinopril (Prinivil Tab*) 5 mg PO DAILY@1400 [facility] Metoprolol Succinate (Toprol Xl Tab*) 25 mg PO BEDTIME [facility] Nitroglycerin (Nitroglycerin Tab 0.4 Mg*) 0.4 mg SL Q5M PRN Nitroglycerin (Nitroglycerin Tab 0.4 Mg*) 0.4 mg SL Q5M PRN Omeprazole (Prilosec Cap*) 20 mg PO DAILY@0730 [facility] Ticagrelor (Brilinta*) 90 mg PO BID [facility] Vital Signs: Temp Pulse Resp BP Pulse Ox 98.1 F 59 16 143/92 97 04/04/18 07:40 04/04/18 05:00 04/04/18 05:38 04/04/18 05:00 04/04/18 05:00 Oxygen Devices in Use Now: None Appearance: Male lying in bed in NAD Eyes: No Scleral Icterus Ears/Nose/Mouth/Throat: Mucous Membranes Moist Neck: Trachea Midline Respiratory: Symmetrical Chest Expansion and Respiratory Effort, Clear to Auscultation Cardiovascular: NL Sounds; No Murmurs; No JVD, No Edema Abdominal: NL Sounds; No Tenderness; No Distention Lymphatic: No Cervical Adenopathy Extremities: No Edema Skin: No Rash or Ulcers Neurological: Alert and Oriented x 3, NL Muscle Strength and Tone Nutrition: Taking PO's Result Diagrams: 04/03/18 05:04 04/04/18 05:30 Additional Lab and Data: . Assess/Plan/Problems-Billing Assessment: Mr. Fox is a 67 yo male with a PMH of diabetes, CAD with cardiac catheterization in 2010 showing mild to moderate disease, HTN, HLD, and "pre- diabetes" on metformin who presented on 03/31 with reports of intermittent chest pain for 1 week, now s/p cath with stent to LAD. - Patient Problems (1) Chest pain Comment: - Resolved. - S/P cath with stent to LAD. - Continue aspirin, brilinta, metoprolol, lisinopril, statin, and nitro prn. (2) HTN (hypertension) Comment: - Controlled. - Continue lisinopril and metoprolol. (3) HLD (hyperlipidemia) Comment: - Continue atorvastatin. (4) Diabetes Comment: - HbgA1C 5.5 - Hold metformin, may resume at discharge at discretion of PCP. (5) Full code status Comment: Status and Disposition: Inpatient. Discharge to home.
[2018-04-04] MEDS: Ticagrelor* 90 MG TAB PO SCH (08:42)
[2018-04-04] MEDS: Aspirin EC TAB* 81 MG TAB.EC PO SCH (08:42)
[2018-04-04] MEDS: Omeprazole CAP* 20 MG PO SCH (08:42)
[2018-04-04] MEDS: Insulin LISPRO* 1 UNITS UNIT SUBCUT SCH (08:44)
[2018-04-04 10:32] VITALS: BP 120/80
--- NOTE | 2018-04-04 12:15 | CATH ---
CC: Dr. Felix; Saravanan Sparks MD CARDIAC CATHETERIZATION: DATE OF PROCEDURE: 04/03/18 PROCEDURE: Cardiac catheterization including coronary angiography. INDICATIONS: Acute coronary syndrome. The patient is a 67-year-old gentleman with a history of moderate coronary artery disease based on a cardiac catheterization in 2010. The patient was admitted to the hospital with crescendo angina. Hi s stress test was markedly positive for anterior wall ischemia and cardiac catheterization was recomm ended. DESCRIPTION OF PROCEDURE: The patient was brought to the catheterization lab in a fasting state. In formed consent had been obtained prior to the procedure. All labs were reviewed. The patient was pl aced supine on the catheterization table. His right wrist area was prepped and draped in the usual fa shion. 1% lidocaine was used for local anesthesia. The right radial artery was entered via Seldinge r technique and a guidewire was placed. Over the guidewire, a 6-Djiboutian hydrophilic sheath was placed . The patient underwent coronary angiography using a 6-Djiboutian AL1 catheter. At the end of the proce dure, the patient went on to angioplasty and stenting of the LAD. Please see Dr. Felix' note for th ose details. The patient received 3000 units of heparin, 3 mL of verapamil, and 300 mcg of nitroglycerin intraarte rially at the beginning of the procedure. FINDINGS: 1. Left main artery: The left main was normal in size. It gave off one large diagonal vessel. The proximal LAD had an eccentric 95% stenosis before the first diagonal. The remainder of the LAD and the large diagonal vessel were without disease. 2. Left circumflex artery: The circumflex artery was normal in size. It gave off one large obtuse marginal branch. There was no evidence of stenosis. 3. Right coronary artery: The RCA was large dominant vessel and gave off the PDA. There was no evid ence of stenosis. Of note, after the injection of right coronary artery and before the injection of the left main arter y, the patient developed ST segment elevation of the inferior leads. It was treated with sublingual nitroglycerin and fluids and his symptoms subsequently resolved. The patient did not have any furthe r chest pain during the procedure. IMPRESSION: 1. Critical stenosis of proximal LAD with a 95% eccentric stenosis. 2. No critical disease of the right coronary artery or left circumflex artery. 3. Successful right radial catheterization. RECOMMENDATION: The patient will undergo stenting of his LAD. [id number]/[facility] #: [id number]
--- NOTE | 2018-04-05 03:49 | DS ---
CC: Dr. Phillips * [facility] DISCHARGE SUMMARY: DATE OF ADMISSION: 04/01/18 DATE OF DISCHARGE: 04/04/18 PRIMARY CARE PROVIDER: Dr. Phillips. ATTENDING PHYSICIAN: Stephen Rao MD * (dictation provided by Ina Yung NP). PRIMARY DIAGNOSES: 1. Chest pain. 2. Status post cardiac catheterization with stent to LAD. SECONDARY DIAGNOSES: 1. Hypertension. 2. Hyperlipidemia. 3. Prediabetes. PAST SURGICAL HISTORY: 1. Status post cardiac catheterization, 2017 and 2010. 2. Status post cystoscopy and lithotripsy, 2013, and status post ureteral stent insertion and removal in 2013. MEDICATIONS AT THE TIME OF DISCHARGE: 1. Metoprolol succinate 25 mg p.o. at bedtime. 2. Metformin 500 mg p.o. daily. 3. Omeprazole 20 mg p.o. daily. 4. Lisinopril 5 mg p.o. daily. 5. Finasteride 5 mg p.o. daily. 6. Atorvastatin 10 mg p.o. at bedtime. 7. Aspirin 81 mg p.o. daily. 8. Ticagrelor 90 mg p.o. b.i.d. 9. Nitroglycerin 0.4 mg sublingually q.5 minutes p.r.n. chest pain. HOSPITAL COURSE: Mr. Fox is a 67-year-old male with a past medical history of hypertension, hyperlipidemia, known mild coronary artery disease with cardiac catheterization in 2010 as well as a diagnosis of "prediabetes" who presented to the hospital on 04/01/18 with chest pain. Please see the dictated H and P from Viridiana Dominguez NP, for complete details. In brief, the patient states that he had had pain for about a week intermittently. He described it as being in the mid sternum and radiating to the left shoulder. He noted it was associated with diaphoresis and slight shortness of breath. He described his pain as being aggravated with exertion. In the emergency room, he had an EKG which showed sinus rhythm and no acute sign of ischemia and a troponin of 0.01. Mr. Fox was admitted to the hospital. He had repeat troponins, which were 0.03 and 0.02. He went on for a nuclear medicine stress test on 04/02/18, which showed that there is a large reversible defect of the anterior wall consistent with ischemia as well as a small fixed defect in the apex which may or may not be physiological thinning previous infarct. There is septal dyskinesia high risk. The patient was seen in consultation by Dr. Winchester from Cardiology, I refer you to his note for complete details. He noted the findings from a stress test and also the fact that the patient had severe chest pain and ST segment depressions during that exercise nuclear medicine scan. Cardiac catheterization was recommended and performed on 04/03/18. At that time , the patient was found to have critical stenosis to the LAD and a stent was placed. Mr. Fox has been chest pain free since cardiac catheterization. He is ambulating in his room without difficulty. His radial catheterization site is benign. Plan is for Mr. Fox to be discharged home to follow up closely with Dr. Winchester in the outpatient setting, first for wound check and then ongoing management of coronary artery disease. He has newly been started on Brilinta during this hospitalization. Note that Mr. Fox has a diagnosis that he describes as pre-diabetes. In our records, I see that his hemoglobin A1c has always been less than 6. His most recent check on admission showed hemoglobin A1c of 5.5. Per his description, he has had a hemoglobin A1c of up to 7 in the past which would be consistent with diabetes and for now, I would recommend that he continue on metformin until he follows up with Dr. Phillips regarding the details of his history of diabetes. Mr. Fox is medically stable for discharge to home. DISPOSITION: Home. DIET: Low-fat, low-salt, consistent carbohydrate. ACTIVITY: As outlined in the discharge instructions cardiac catheterization. The patient is not to drive or operate machinery for 24 hours after discharge. He is not to lift anything with the affected arm which should be the right arm for the first 24 hours followed by 5-pound lifting restriction for the next 3 days. He is to avoid excessive moisture to the exit site in the right radial area for 5 days and avoid flexing at the wrist for the next 3 days. The patient is also referred to cardiac rehab. FOLLOWUP PLANS: 1. Please follow up with Dr. Winchester, an appointment has been scheduled for 04/17 at 1:30 p.m. 2. Please follow up with Dr. Beecher regarding his acute hospitalization within the next week. TIME SPENT: Approximately 60 minutes were spent in the discharge of this patient, more than half the time was spent with the patient at the bedside reviewing the events leading up to this hospitalization, performing the physical examination, and reviewing the plan of care. INA YUNG NP [id number]/[facility] #: [id number] CHASTITY
--- NOTE | 2018-04-05 06:37 | CATH ---
CC: Dr. Winchester * STENT REPORT: DATE OF PROCEDURE: 04/03/18 - ROOM #ICU-02 LION HUNTER: Dr. Winchester. PROCEDURES: 1. Diagnostic catheterization by Dr. Winchester. 2. Stent placement to LAD, 2.75 x 16 Synergy drug-eluting stent. HISTORY: A 67-year-old male with progressive unstable angina, intermediate risk stress imaging study with anterior wall ischemia. Diagnostic catheterization by Dr. Winchester demonstrated a high-grade proximal LAD stenosis. The coronary angiography was accompanied by transient inferior ST elevation, which resolved with medical management. Hence the RCA was reimaged post LAD stent placement. PROCEDURE ACCESS: For the diagnostic portion, see Dr. Winchester's report. Right radial artery sheath 6F slender, guide 6F VL3.5, 14 BMW used to deploy 2.75 x 16 Synergy drug-eluting stent to proximal LAD, 11 atmospheres at 16 seconds, post dilated with a 2.75 x 15 NC balloon to 20 atmospheres. ANGIOGRAPHY: Pre-LAD intervention: The LAD has an ulcerated 80% to 90% stenosis before the first diagonal branch, the diagonal and LAD have CHELSIE 2 flow. The diagonal is large. After LAD revascularization, there is a normal antegrade flow, no residual stenosis, no dissection. CONCLUSION: Singe vessel disease, LAD; excellent angiographic result with drug - eluting stent placement. Right coronary reinjection demonstrated an anatomically unremarkable RCA. [id number]/CPS #: [id number] MTDD
== END 2018-04-04 11:00 | disposition home or self-care (01) | DRG 247 ==
LOC: ED 08:25 → MEDTELE 12:10 → OBSVTOIN 04-02 16:00 → ICU 04-03 10:38
PROVIDERS: ADMIT Internal Medicine; ATTEND Internal Medicine
PROC: 4A12XM4 Monitoring of Cardiac Stress, External Approach (ICD-10-PCS; principal; 2018-04-02)
PROC: 027034Z Dilation of Coronary Artery, One Artery with Drug-eluting Intraluminal Device, Percutaneous Approach (ICD-10-PCS; 2018-04-02)
PROC: 4A023N7 Measurement of Cardiac Sampling and Pressure, Left Heart, Percutaneous Approach (ICD-10-PCS; 2018-04-02)
PROC: B2111ZZ Fluoroscopy of Multiple Coronary Arteries using Low Osmolar Contrast (ICD-10-PCS; 2018-04-02)
PROC: B2151ZZ Fluoroscopy of Left Heart using Low Osmolar Contrast (ICD-10-PCS; 2018-04-02)
DX: I25.118 Atherosclerotic heart disease of native coronary artery with other forms of angina pectoris (principal); I10 Essential (primary) hypertension; E78.5 Hyperlipidemia, unspecified; K21.9 Gastro-esophageal reflux disease without esophagitis; E66.9 Obesity, unspecified; N40.0 Benign prostatic hyperplasia without lower urinary tract symptoms; E11.9 Type 2 diabetes mellitus without complications; Z68.30 Body mass index [BMI] 30.0-30.9, adult; Z87.442 Personal history of urinary calculi; Z79.84 Long term (current) use of oral hypoglycemic drugs; Z79.82 Long term (current) use of aspirin; Z82.49 Family history of ischemic heart disease and other diseases of the circulatory system; Z83.3 Family history of diabetes mellitus; Z80.42 Family history of malignant neoplasm of prostate
CPT/HCPCS: 36415; 71045; 78452; 80048; 80053; 80061; 81003; 81015; 82550; 82553; 83036; 83605; 83690; 83735; 83880; 84443; 84484; 85025; 85379; 85610; 85730; 86140; 87086; 87641; 93005; 93017; 93458; 99156; 99157; 99283; A9270-GY; A9502; C1725; C1876; C1887; C9600-LD; G0378; J0280; J1644; J2250; J2785; J3010; Q9967

== ENCOUNTER 2018-07-03 16:06 | Emergency (ER) | payer MEDICARE, BC ==
--- NOTE | 2018-07-03 16:31 | ED ---
Complex/Multi-Sys Presentation - HPI Summary HPI Summary: This is scribe Ed Lexis documenting for attending Bhavesh Packer MD. 67 y/o male presents to the ED c/o fever and L leg pain at the back of the L knee for several days. For several days the pt also has had increased urinary frequency; several weeks ago the pt had several episodes of blood in his urine. Associated sx: chills, diaphoresis, mild MORALES behind eyes. Pt had a temperature of 103.3 at home today. Pt is in currently "in cardiac rehab". PMHx cardiac stent placed (04/01/18). Denies cough, CP, SOB, ABD pain, N/V/D. Pt on Brilinta. I, Dr. Packer, personally performed the services described in this documentation as scribed in my presence and it is both accurate and complete. - History Of Current Complaint Chief Complaint: EDWeakness Hx Obtained From: Patient Onset/Duration: Lasting Days, Still Present Timing: Constant Location: Pain At: - behind L knee Associated Signs And Symptoms: Positive: Headache, Fever, Diaphoresis, Other - chills, increased urinary frequency, blood in urine. Negative: SOB, Cough, Chest Pain, Nausea, Vomiting, Diarrhea - Allergies/Home Medications Allergies/Adverse Reactions: Allergies Allergy/AdvReac Type Severity Reaction Status Date / Time No Known Allergies Allergy Verified 07/03/18 16:16 Home Medications: Home Medications Finasteride TAB* [Proscar TAB*] 5 mg PO DAILY 07/03/18 [History Confirmed ] PMH/Surg Hx/FS Hx/Imm Hx Previously Healthy: No Endocrine/Hematology History: Reports: Hx Diabetes - PRE-DM Denies: Hx Sickle Cell Disease Cardiovascular History: Reports: Hx Coronary Artery Disease, Hx Hypercholesterolemia, Hx Hypertension - ON MEDS Respiratory History: Reports: Hx Pneumonia GI History: Reports: Hx Gastroesophageal Reflux Disease History: Reports: Hx Kidney Stones - LEFT, Other Problems/Disorders - ENLARGE PROSTATE, BPH Sensory History: Reports: Hx Contacts or Glasses - GLASSES, Hx Hearing Aid, Hx Hearing Problem Opthamlomology History: Reports: Hx Contacts or Glasses - GLASSES Neurological History: Denies: Hx Seizures, Hx Spinal Cord Injury, Hx Transient Ischemic Attacks ( TIA) Psychiatric History: Denies: Hx Anxiety - Surgical History Surgery Procedure, Year, and Place: 07/02/2014 CYSTOSCOPY WITH LEFT STENT INSERTION, [facility], HEART CATH Hx Anesthesia Reactions: No Infectious Disease History: No Infectious Disease History: Denies: Traveled Outside the [place] in Last 30 Days - Family History Known Family History: Negative: Renal Disease - Social History Alcohol Use: None Hx Substance Use: No Substance Use Type: Reports: None Hx Tobacco Use: No Smoking Status (MU): Never Smoked Tobacco Have You Smoked in the Last Year: No Review of Systems Positive: Fever, Chills, Skin Diaphoresis Eyes: Negative ENT: Negative Cardiovascular: Negative Respiratory: Negative Gastrointestinal: Negative Positive: frequency, other - blood in urine Musculoskeletal: Other - pain at LLE, behind L knee Skin: Negative Positive: Headache Psychological: Normal All Other Systems Reviewed And Are Negative: Yes Physical Exam - Summary Physical Exam Summary: VITAL SIGNS: Reviewed. GENERAL: Patient is a well-developed and nourished male who is lying comfortable in the stretcher. Patient is not in any acute respiratory distress. HEAD AND FACE: No signs of trauma. No ecchymosis, hematomas or skull depressions. No sinus tenderness. EYES: PERRLA, EOMI x 2, No injected conjunctiva, no nystagmus. EARS: Hearing grossly intact. Ear canals and tympanic membranes are within normal limits. MOUTH: Oropharynx within normal limits. NECK: Supple, trachea is midline, no adenopathy, no JVD, no carotid bruit, no c- spine tenderness, neck with full ROM. CHEST: Symmetric, no tenderness at palpation LUNGS: Clear to auscultation bilaterally. No wheezing or crackles. CVS: Regular rate and rhythm, S1 and S2 present, no murmurs or gallops appreciated. ABDOMEN: Soft, non-tender. No signs of distention. No rebound no guarding, and no masses palpated. Bowel sounds are normal. EXTREMITIES: FROM in all major joints, no edema, no cyanosis or clubbing. NEURO: Alert and oriented x 3. No acute neurological deficits. Speech is normal and follows commands. SKIN: Warm. The patient is diaphoretic. Triage Information Reviewed: Yes Vital Signs On Initial Exam: Initial Vitals Temp Pulse Resp BP Pulse Ox 98.6 F 90 18 126/70 96 07/03/18 16:07 07/03/18 16:07 07/03/18 16:07 07/03/18 16:07 07/03/18 16:07 Vital Signs Reviewed: Yes Diagnostics - Vital Signs Vital Signs Temp Pulse Resp BP Pulse Ox 07/03/18 16:07 98.6 F 90 18 126/70 96 - Laboratory Result Diagrams: 07/03/18 16:43 07/03/18 16:43 Lab Statement: Any lab studies that have been ordered have been reviewed, and results considered in the medical decision making process. - Radiology CXR Xray Interpretation: No Acute Changes Radiology Interpretation Completed By: Radiologist - EKG 1 EKG Interpretation: 16:15 - SR @ [address] elevations. Re-Evaluation - Re-Evaluation 1 Re-Evaluation Time: 17:49 Comment: Discussed test results and findings. Pt and do not want to stay. Pt will be d/c home. Complex Multi-Symp Course/Dx Assessment/Plan: Test results are without significant abnormalities except WBC 12.9 without any bands, fibrinogen 479, glucose 150, crp 140, UA (+) UTI. In the ED course the pt was given IV fluids and Rocephin for his UTI. I offered the pt admission; however, the pt declined. He wants to try oral abx at home. Therefore he will be d/c home with Rx Ciprofloxacin and f/u PCP. The pt instructed that if he develops fevers, N/V, increases in back pain, and any other symptoms that he should return to the ED immediately. - Diagnoses Provider Diagnoses: UTI (urinary tract infection) Discharge - Sign-Out/Discharge Documenting (check all that apply): Patient Departure - Discharge Plan Condition: Stable Disposition: HOME Prescriptions: Ciprofloxacin TAB* [Cipro 500 MG TAB*] 500 mg PO BID #14 tab Patient Education Materials: Urinary Tract Infection in Men (ED) Referrals: Jacqueline MILLER,Vida Moore [Primary Care Provider] - 4 Days (PLEASE F/U IN 3-5 DAYS ) Additional Instructions: RETURN TO THE ED FOR CHANGING/WORSENING SYMPTOMS - Billing Disposition and Condition Condition: STABLE Disposition: Home
[2018-07-03] MEDS ORDERED: NS 0.9% 1000 ML* 1,000 ML IV ONE ×2 (16:35→17:25)
[2018-07-03 16:55] LABS: ABS Basophils 0 10^3/ul (0-0.2); ABS Eosinophils 0 10^3/ul (0-0.6); ABS Lymphocytes 0.4 10^3/ul (1.0-4.8); ABS Monocytes 0.7 10^3/ul (0-0.8); ABS Neutrophils 11.9 10^3/ul (1.5-7.7); ABS Nucleated RBC 0 10^3/ul; Eosinophil % 0 % (0-6); Hematocrit 50 % (42-52); Hemoglobin 16.8 g/dl (14.0-18.0); Mean Corpuscular HGB Conc 34 g/dl (31-36); Mean Corpuscular Hemoglobin 31 pg (27-31); Mean Corpuscular Volume 91 fL (80-94); Mean Platelet Volume 9.2 um3 (7.4-10.4); Nucleated Red Blood Cells % 0; Platelet Count 141 10^3/ul (150-450); Red Blood Count 5.49 10^6/ul (4.00-5.40); Red Cell Distribution Width 14 % (10.5-15); White Blood Count 12.9 10^3/ul (3.5-10.8)
[2018-07-03 17:10] LABS: Urine Appearance Cloudy; Urine Blood 2+ (Negative); Urine Color Amber; Urine Ketones Negative (Negative); Urine Protein 2+(100 mg/dL) (Negative); Urine Red Blood Cell 3+(>10/hpf) (Absent); Urine Specific Gravity 1.033 (1.010-1.030); Urine Urobilinogen Negative (Negative); Urine White Blood Cell 3+(>20/hpf) (Absent)
[2018-07-03 17:12] LABS: INR 1.08 (0.77-1.02)
[2018-07-03 17:18] LABS: EGFR Non-African American 66.3 (>60)
[2018-07-03] MEDS ORDERED: cefTRIAXone(*) 1 GM in NS 0.9% 50 ML* 50 ML IVPB ONE (17:25)
--- NOTE | 2018-07-03 17:27 | RAD ---
INDICATION: Fever COMPARISON: April 01, 2018 TECHNIQUE: An AP portable view obtained at 1656 hours is submitted. FINDINGS: Bones/Soft Tissues: There are no acute bony findings. Cardiomediastinal: The cardiomediastinal silhouette is normal. Lungs: There are no infiltrates. Pleura: There are no pleural effusions. Other: None IMPRESSION: NO ACTIVE DISEASE.
[2018-07-03] MEDS ORDERED: Ciprofloxacin TAB* 500 MG PO ONE (17:56)
[2018-07-03 19:09] VITALS: BP 131/65
== END 2018-07-03 19:09 | disposition home or self-care (01) ==
LOC: ED 16:06
DX: N39.0 Urinary tract infection, site not specified (principal); R50.9 Fever, unspecified; M79.605 Pain in left leg; R51 Headache; R31.9 Hematuria, unspecified
CPT/HCPCS: 36415; 71045; 80053; 81003; 81015; 83605; 83880; 84145; 84484; 85025; 85384; 85610; 85652; 85730; 86140; 87040; 87077; 87086; 87186; 93005; 99283; A9270-GY; J0696

== ENCOUNTER 2018-07-05 08:21 | Emergency (ER) | payer MEDICARE, BC ==
[2018-07-05 09:14] LABS: ABS Basophils 0.1 10^3/ul (0-0.2); ABS Eosinophils 0 10^3/ul (0-0.6); ABS Lymphocytes 0.9 10^3/ul (1.0-4.8); ABS Monocytes 1.4 10^3/ul (0-0.8); ABS Neutrophils 6.5 10^3/ul (1.5-7.7); ABS Nucleated RBC 0 10^3/ul; Eosinophil % 0.5 % (0-6); Hematocrit 46 % (42-52); Lymphocyte % 10.5 % (25-47); Mean Corpuscular HGB Conc 35 g/dl (31-36); Mean Corpuscular Hemoglobin 31 pg (27-31); Mean Corpuscular Volume 90 fL (80-94); Mean Platelet Volume 9.1 um3 (7.4-10.4); Nucleated Red Blood Cells % 0; Platelet Count 129 10^3/ul (150-450); Red Blood Count 5.17 10^6/ul (4.00-5.40); Red Cell Distribution Width 14 % (10.5-15); White Blood Count 8.9 10^3/ul (3.5-10.8)
[2018-07-05 09:23] LABS: INR 1.11 (0.77-1.02)
[2018-07-05 09:34] LABS: EGFR Non-African American 73.1 (>60)
[2018-07-05 10:01] LABS: Urine Appearance Clear; Urine Blood 2+ (Negative); Urine Color Yellow; Urine Ketones Negative (Negative); Urine Protein Negative (Negative); Urine Red Blood Cell Trace(0-2/hpf) (Absent); Urine Specific Gravity 1.004 (1.010-1.030); Urine Urobilinogen Negative (Negative); Urine White Blood Cell Absent (Absent)
[2018-07-05] MEDS ORDERED: NS 0.9% 1000 ML* 1,000 ML IV ONE ×2 (10:17→11:39)
[2018-07-05] MEDS ORDERED: cefTRIAXone(*) 1 GM in NS 0.9% 50 ML* 50 ML IVPB ONE (10:17)
[2018-07-05] MEDS ORDERED: cefTRIAXone(*) 1 GM ADVAN/BAG ONE (10:33)
--- NOTE | 2018-07-05 11:09 | ED ---
GI/ HPI - HPI Summary HPI Summary: Pt is a 67 y/o M presents to ED with c/o CP and concerns of a UTI. Pain is non existant now, per quick triage. Assoc Sx: Decreased PO intake, CP, increased urinary frequency. Denies: abd/back pain. He was seen and treated for a UTI on Monday in the ED. He notes that he showered and then started peeing a lot. He describes his urination as short but frequent instances. His last urination was at 0800 AM upon arrival and notes he has gone 2 times since arriving. PMHx: Prostate problems. Had some chest pains yesterday that show up in minute long episodes. He has a stent put in a few months ago. He reports that sometimes he feels better moving around and sometimes it makes it worse. - History of Current Complaint Chief Complaint: EDChestPainROMI Time Seen by Provider: 07/05/18 08:42 Stated Complaint: POSS UTI Hx Obtained From: Patient Onset/Duration: Started Days Ago Timing: Constant Current Severity: Mild Pain Intensity: 0 Associated Signs and Symptoms: Positive: Chest Pain, Other: - POS: decreased PO intake, increased urinary frequency - Additional Pertinent History Primary Care Physician: [id number] - Allergy/Home Medications Allergies/Adverse Reactions: Allergies Allergy/AdvReac Type Severity Reaction Status Date / Time No Known Allergies Allergy Verified 07/05/18 08:53 PMH/Surg Hx/FS Hx/Imm Hx Endocrine/Hematology History: Reports: Hx Diabetes - PRE-DM Denies: Hx Sickle Cell Disease Cardiovascular History: Reports: Hx Coronary Artery Disease, Hx Hypercholesterolemia, Hx Hypertension - ON MEDS Respiratory History: Reports: Hx Pneumonia GI History: Reports: Hx Gastroesophageal Reflux Disease History: Reports: Hx Kidney Stones - LEFT, Other Problems/Disorders - ENLARGE PROSTATE, BPH Sensory History: Reports: Hx Contacts or Glasses - GLASSES, Hx Hearing Aid, Hx Hearing Problem Opthamlomology History: Reports: Hx Contacts or Glasses - GLASSES Neurological History: Denies: Hx Seizures, Hx Spinal Cord Injury, Hx Transient Ischemic Attacks ( TIA) Psychiatric History: Denies: Hx Anxiety - Surgical History Surgery Procedure, Year, and Place: 07/02/2014-CYSTOS[place] [place] Hx Anesthesia Reactions: No Infectious Disease History: No Infectious Disease History: Denies: Traveled Outside the [place] in Last 30 Days - Family History Known Family History: Negative: Renal Disease - Social History Occupation: Retired Lives: With Family Alcohol Use: None Hx Substance Use: No Substance Use Type: Reports: None Hx Tobacco Use: No Smoking Status (MU): Never Smoked Tobacco Have You Smoked in the Last Year: No Review of Systems Positive: Other - POS: decreased PO intake.. Negative: Fever, Chills, Fatigue, Skin Diaphoresis Negative: Photophobia, Blurred Vision, Diplopia, Drainage, Erythema Negative: Epistaxis, Dental Pain, Sore Throat, Ear Ache, Nasal Discharge Positive: Chest Pain. Negative: Palpitations Negative: Shortness Of Breath, Cough Negative: Abdominal Pain, Vomiting, Diarrhea, Nausea Positive: frequency - increased. Negative: burning, dysuria, discharge, flank pain, hematuria, incontinence, pain, urgency Negative: Arthralgia, Myalgia, Decreased ROM, Edema Negative: Rash, Bruising Negative: Headache, Weakness, Paresthesia, Numbness, Syncope, Slurred Speech Negative: Anxious, Depressed All Other Systems Reviewed And Are Negative: Yes Physical Exam - Summary Physical Exam Summary: Constitutional: Well-developed, Well-nourished, Alert. (-) Distressed Skin: Warm, Dry HENT: Normocephalic; Atraumatic Eyes: Conjunctiva normal Neck: Musculoskeletal ROM normal neck. (-) JVD, (-) Stridor, (-) Tracheal deviation Cardio: Rhythm regular, rate normal, Heart sounds normal; Intact distal pulses; The pedal pulses are 2+ and symmetric. Radial pulses are 2+ and symmetric. (-) Murmur Pulmonary/Chest wall: Effort normal. (-) Respiratory distress, (-) Wheezes, (-) Rales Abd: Soft, (-) epigastric tenderness, (-) Distension, (-) Guarding, (-) Rebound Musculoskeletal: (-) Edema Lymph: (-) Cervical adenopathy Neuro: Alert, Oriented x3 Psych: Mood and affect Normal Triage Information Reviewed: Yes Vital Signs On Initial Exam: Initial Vitals Temp Pulse Resp BP Pulse Ox 97.6 F 70 18 118/83 98 07/05/18 08:40 07/05/18 08:40 07/05/18 08:40 07/05/18 08:40 07/05/18 08:40 Vital Signs Reviewed: Yes Diagnostics - Vital Signs Vital Signs Temp Pulse Resp BP Pulse Ox 07/05/18 10:46 66 17 114/82 98 07/05/18 10:10 68 19 118/78 97 07/05/18 10:00 65 18 96 07/05/18 09:40 65 15 120/82 95 07/05/18 09:10 22 122/90 07/05/18 09:00 69 27 96 07/05/18 08:51 98 07/05/18 08:40 97.6 F 69 18 118/83 98 - Laboratory Lab Results: Lab Results 07/05/18 07/05/18 07/05/18 Range/Units 09:02 09:02 09:02 WBC 8.9 (3.5-10.8) 10^3/ul RBC 5.17 (4.00-5.40) 10^6/ul Hgb 16.0 (14.0-18.0) g/dl Hct 46 (42-52) % MCV 90 (80-94) fL MCH 31 (27-31) pg MCHC 35 (31-36) g/dl RDW 14 (10.5-15) % Plt Count 129 L (150-450) 10^3/ul MPV 9.1 (7.4-10.4) um3 Neut % (Auto) 72.9 (38-83) % Lymph % (Auto) 10.5 L (25-47) % [place] % (Auto) 15.4 H (0-7) % Eos % (Auto) 0.5 (0-6) % Baso % (Auto) 0.7 (0-2) % Absolute Neuts (auto) 6.5 (1.5-7.7) 10^3/ul Absolute Lymphs (auto) 0.9 L (1.0-4.8) 10^3/ul Absolute Monos (auto) 1.4 H (0-0.8) 10^3/ul Absolute Eos (auto) 0 (0-0.6) 10^3/ul Absolute Basos (auto) 0.1 (0-0.2) 10^3/ul Absolute Nucleated RBC 0 10^3/ul Nucleated RBC % 0 INR (Anticoag Therapy) 1.11 H (0.77-1.02) APTT 32.6 (26.0-36.3) seconds Sodium 134 L (135-145) mmol/L Potassium 3.6 (3.5-5.0) mmol/L Chloride 104 (101-111) mmol/L Carbon Dioxide 22 (22-32) mmol/L Anion Gap 8 (2-11) mmol/L BUN 15 (6-24) mg/dL Creatinine 1.02 (0.67-1.17) mg/dL Est GFR ( Amer) 88.4 (>60) Est GFR (Non-Af Amer) 73.1 (>60) BUN/Creatinine Ratio 14.7 (8-20) Glucose 126 H (70-100) mg/dL Lactic Acid (0.5-2.0) mmol/L Calcium 8.9 (8.6-10.3) mg/dL Total Bilirubin 2.20 H (0.2-1.0) mg/dL AST 24 (13-39) U/L ALT 33 (7-52) U/L Alkaline Phosphatase 65 (34-104) U/L Troponin I 0.00 (<0.04) ng/mL Total Protein 6.8 (6.4-8.9) g/dL Albumin 3.7 (3.2-5.2) g/dL Globulin 3.1 (2-4) g/dL Albumin/Globulin Ratio 1.2 (1-3) Urine Color Urine Appearance Urine pH (5-9) Ur Specific [place] (1.010-1.030) Urine Protein (Negative) Urine Ketones (Negative) Urine Blood (Negative) Urine Nitrate (Negative) Urine Bilirubin (Negative) Urine Urobilinogen (Negative) Ur Leukocyte Esterase (Negative) Urine WBC (Auto) (Absent) Urine RBC (Auto) (Absent) Urine Bacteria (Absent) Urine Glucose (Negative) 07/05/18 07/05/18 Range/Units 09:02 09:37 WBC (3.5-10.8) 10^3/ul RBC (4.00-5.40) 10^6/ul Hgb (14.0-18.0) g/dl Hct (42-52) % MCV (80-94) fL MCH (27-31) pg MCHC (31-36) g/dl RDW (10.5-15) % Plt Count (150-450) 10^3/ul MPV (7.4-10.4) um3 Neut % (Auto) (38-83) % Lymph % (Auto) (25-47) % [place] % (Auto) (0-7) % Eos % (Auto) (0-6) % Baso % (Auto) (0-2) % Absolute Neuts (auto) (1.5-7.7) 10^3/ul Absolute Lymphs (auto) (1.0-4.8) 10^3/ul Absolute Monos (auto) (0-0.8) 10^3/ul Absolute Eos (auto) (0-0.6) 10^3/ul Absolute Basos (auto) (0-0.2) 10^3/ul Absolute Nucleated RBC 10^3/ul Nucleated RBC % INR (Anticoag Therapy) (0.77-1.02) APTT (26.0-36.3) seconds Sodium (135-145) mmol/L Potassium (3.5-5.0) mmol/L Chloride (101-111) mmol/L Carbon Dioxide (22-32) mmol/L Anion Gap (2-11) mmol/L BUN (6-24) mg/dL Creatinine (0.67-1.17) mg/dL Est GFR ( Amer) (>60) Est GFR (Non-Af Amer) (>60) BUN/Creatinine Ratio (8-20) Glucose (70-100) mg/dL Lactic Acid 1.0 (0.5-2.0) mmol/L Calcium (8.6-10.3) mg/dL Total Bilirubin (0.2-1.0) mg/dL AST (13-39) U/L ALT (7-52) U/L Alkaline Phosphatase (34-104) U/L Troponin I (<0.04) ng/mL Total Protein (6.4-8.9) g/dL Albumin (3.2-5.2) g/dL Globulin (2-4) g/dL Albumin/Globulin Ratio (1-3) Urine Color Yellow Urine Appearance Clear Urine pH 6.0 (5-9) Ur Specific [place] 1.004 L (1.010-1.030) Urine Protein Negative (Negative) Urine Ketones Negative (Negative) Urine Blood 2+ A (Negative) Urine Nitrate Negative (Negative) Urine Bilirubin Negative (Negative) Urine Urobilinogen Negative (Negative) Ur Leukocyte Esterase Negative (Negative) Urine WBC (Auto) Absent (Absent) Urine RBC (Auto) Trace(0-2/hpf) (Absent) Urine Bacteria Absent (Absent) Urine Glucose Negative (Negative) Result Diagrams: 07/05/18 09:02 07/05/18 09:02 Lab Statement: Any lab studies that have been ordered have been reviewed, and results considered in the medical decision making process. - CT A/P CT CT Interpretation: Positive (See Comments) - IMPRESSION: Diverticulosis without definite evidence of diverticulitis. No evidence of obstructive uropathy is noted. There is left renal cyst is noted. No evidence of cholelithiasis or biliary duct dilatation. There is an enlarged prostate with a Mcneill catheter in place. CT Interpretation Completed By: Radiologist - Report has been reviewed by radiologist and provider. - EKG 0849 Cardiac Rate: NL - 70 bpm EKG Rhythm: Sinus Rhythm ST Segment: Normal Re-Evaluation - Re-Evaluation First Eval Re-Evaluation Time: 11:45 Change: Unchanged Comment: 600 mL blood tinged urine in bag. Notes he passed a large blood clot upon arrival. GIGU Course/Dx - Diagnoses Provider Diagnoses: Chest pain, unspecified, Hematuria, UTI (urinary tract infection) - Physician Notifications Discussed Care Of Patient With: Fran Rao Time Discussed With Above Provider: 12:00 Instructed by Provider To: Other - Discussed care of patient and accepted for admission. Discharge - Sign-Out/Discharge Documenting (check all that apply): Patient Departure - Discharge Plan Condition: Stable Disposition: ADMITTED TO [facility] Prescriptions: Tamsulosin CAP* [Flomax CAP*] 0.4 mg PO BEDTIME #30 cap Patient Education Materials: Chest Pain (ED), Urinary Tract Infection in Men ( ED), Hematuria (ED) Referrals: Jacqueline MILLER,Vida Moore [Primary Care Provider] - 2 Days Additional Instructions: RETURN TO THE EMERGENCY DEPARTMENT FOR CHANGING OR WORSENING SYMPTOMS
--- NOTE | 2018-07-05 11:12 | RAD ---
Indication: Left flank pain, hematuria. CT of the abdomen and pelvis was performed without oral or IV contrast. Coronal and sagittal reconstructed images were obtained. Comparison previous exam dated June 30, 2014. Lung bases demonstrate no pleural fluid, nodules or masses. Heart is of normal size without evidence of pericardial effusion. Liver is normal in size. No focal lesions or intrahepatic ductal dilatation is noted. The gallbladder demonstrates no calcified gallstones. No pericholecystic fluid or wall thickening is identified. The spleen is normal in size. The pancreas demonstrates no mass or pancreatic duct dilatation. The common duct is not dilated. No adrenal masses are noted. The kidneys demonstrate no hydronephrosis in either kidney. No dilated loops of bowel are noted. Diverticulosis without definite evidence of diverticulitis is noted. Prostate is enlarged. A Mcneill catheter is in place. The urinary bladder is unremarkable. No dilated loops of bowel are noted. No hernias are identified. The bony structures demonstrate degenerative disc disease at multiple levels in the lumbar spine. IMPRESSION: Diverticulosis without definite evidence of diverticulitis. No evidence of obstructive uropathy is noted. There is left renal cyst is noted. No evidence of cholelithiasis or biliary duct dilatation. There is an enlarged prostate with a Mcneill catheter in place.
--- NOTE | 2018-07-05 12:23 | ADMNOTE ---
Subjective Date of Service: 07/05/18 Review of Systems - Measurements Intake and Output: Intake and Output Last 24 Hours 07/03/18 07/04/18 07/05/18 07/06/18 06:59 06:59 06:59 06:59 Intake Total 1050 Balance 1050 Weight 212 lb Intake: IV Fluids 1050 Objective Active Medications: Sodium Chloride (Ns 0.9% 1000 Ml*) 1,000 mls @ 1,000 mls/hr IV .PER RATE ONE Stop: 07/05/18 12:38 Last Admin: 07/05/18 11:46 Dose: 1,000 mls/hr Vital Signs - 8 hr 07/05/18 07/05/18 07/05/18 08:40 08:51 09:00 Temperature 97.6 F Pulse Rate 69 69 Respiratory 18 27 Rate Blood Pressure 118/83 (mmHg) O2 Sat by Pulse 98 98 96 Oximetry 07/05/18 07/05/18 07/05/18 09:10 09:40 10:00 Temperature Pulse Rate 65 65 Respiratory 22 15 18 Rate Blood Pressure 122/90 120/82 (mmHg) O2 Sat by Pulse 95 96 Oximetry 07/05/18 07/05/18 07/05/18 10:10 10:46 11:00 Temperature Pulse Rate 68 66 66 Respiratory 19 17 19 Rate Blood Pressure 118/78 114/82 (mmHg) O2 Sat by Pulse 97 98 99 Oximetry 07/05/18 07/05/18 11:10 11:40 Temperature Pulse Rate 63 66 Respiratory 20 16 Rate Blood Pressure 125/85 115/95 (mmHg) O2 Sat by Pulse 99 99 Oximetry Result Diagrams: 07/05/18 09:02 07/05/18 09:02 Additional Lab and Data: Lab Results 07/05/18 07/05/18 07/05/18 Range/Units 09:02 09:02 09:02 WBC 8.9 (3.5-10.8) 10^3/ul RBC 5.17 (4.00-5.40) 10^6/ul Hgb 16.0 (14.0-18.0) g/dl Hct 46 (42-52) % MCV 90 (80-94) fL MCH 31 (27-31) pg MCHC 35 (31-36) g/dl RDW 14 (10.5-15) % Plt Count 129 L (150-450) 10^3/ul MPV 9.1 (7.4-10.4) um3 Neut % (Auto) 72.9 (38-83) % Lymph % (Auto) 10.5 L (25-47) % [place] % (Auto) 15.4 H (0-7) % Eos % (Auto) 0.5 (0-6) % Baso % (Auto) 0.7 (0-2) % Absolute Neuts (auto) 6.5 (1.5-7.7) 10^3/ul Absolute Lymphs (auto) 0.9 L (1.0-4.8) 10^3/ul Absolute Monos (auto) 1.4 H (0-0.8) 10^3/ul Absolute Eos (auto) 0 (0-0.6) 10^3/ul Absolute Basos (auto) 0.1 (0-0.2) 10^3/ul Absolute Nucleated RBC 0 10^3/ul Nucleated RBC % 0 INR (Anticoag Therapy) 1.11 H (0.77-1.02) APTT 32.6 (26.0-36.3) seconds Sodium 134 L (135-145) mmol/L Potassium 3.6 (3.5-5.0) mmol/L Chloride 104 (101-111) mmol/L Carbon Dioxide 22 (22-32) mmol/L Anion Gap 8 (2-11) mmol/L BUN 15 (6-24) mg/dL Creatinine 1.02 (0.67-1.17) mg/dL Est GFR ( Amer) 88.4 (>60) Est GFR (Non-Af Amer) 73.1 (>60) BUN/Creatinine Ratio 14.7 (8-20) Glucose 126 H (70-100) mg/dL Lactic Acid (0.5-2.0) mmol/L Calcium 8.9 (8.6-10.3) mg/dL Total Bilirubin 2.20 H (0.2-1.0) mg/dL AST 24 (13-39) U/L ALT 33 (7-52) U/L Alkaline Phosphatase 65 (34-104) U/L Troponin I 0.00 (<0.04) ng/mL Total Protein 6.8 (6.4-8.9) g/dL Albumin 3.7 (3.2-5.2) g/dL Globulin 3.1 (2-4) g/dL Albumin/Globulin Ratio 1.2 (1-3) Urine Color Urine Appearance Urine pH (5-9) Ur Specific [place] (1.010-1.030) Urine Protein (Negative) Urine Ketones (Negative) Urine Blood (Negative) Urine Nitrate (Negative) Urine Bilirubin (Negative) Urine Urobilinogen (Negative) Ur Leukocyte Esterase (Negative) Urine WBC (Auto) (Absent) Urine RBC (Auto) (Absent) Urine Bacteria (Absent) Urine Glucose (Negative) 07/05/18 07/05/18 Range/Units 09:02 09:37 WBC (3.5-10.8) 10^3/ul RBC (4.00-5.40) 10^6/ul Hgb (14.0-18.0) g/dl Hct (42-52) % MCV (80-94) fL MCH (27-31) pg MCHC (31-36) g/dl RDW (10.5-15) % Plt Count (150-450) 10^3/ul MPV (7.4-10.4) um3 Neut % (Auto) (38-83) % Lymph % (Auto) (25-47) % [place] % (Auto) (0-7) % Eos % (Auto) (0-6) % Baso % (Auto) (0-2) % Absolute Neuts (auto) (1.5-7.7) 10^3/ul Absolute Lymphs (auto) (1.0-4.8) 10^3/ul Absolute Monos (auto) (0-0.8) 10^3/ul Absolute Eos (auto) (0-0.6) 10^3/ul Absolute Basos (auto) (0-0.2) 10^3/ul Absolute Nucleated RBC 10^3/ul Nucleated RBC % INR (Anticoag Therapy) (0.77-1.02) APTT (26.0-36.3) seconds Sodium (135-145) mmol/L Potassium (3.5-5.0) mmol/L Chloride (101-111) mmol/L Carbon Dioxide (22-32) mmol/L Anion Gap (2-11) mmol/L BUN (6-24) mg/dL Creatinine (0.67-1.17) mg/dL Est GFR ( Amer) (>60) Est GFR (Non-Af Amer) (>60) BUN/Creatinine Ratio (8-20) Glucose (70-100) mg/dL Lactic Acid 1.0 (0.5-2.0) mmol/L Calcium (8.6-10.3) mg/dL Total Bilirubin (0.2-1.0) mg/dL AST (13-39) U/L ALT (7-52) U/L Alkaline Phosphatase (34-104) U/L Troponin I (<0.04) ng/mL Total Protein (6.4-8.9) g/dL Albumin (3.2-5.2) g/dL Globulin (2-4) g/dL Albumin/Globulin Ratio (1-3) Urine Color Yellow Urine Appearance Clear Urine pH 6.0 (5-9) Ur Specific [place] 1.004 L (1.010-1.030) Urine Protein Negative (Negative) Urine Ketones Negative (Negative) Urine Blood 2+ A (Negative) Urine Nitrate Negative (Negative) Urine Bilirubin Negative (Negative) Urine Urobilinogen Negative (Negative) Ur Leukocyte Esterase Negative (Negative) Urine WBC (Auto) Absent (Absent) Urine RBC (Auto) Trace(0-2/hpf) (Absent) Urine Bacteria Absent (Absent) Urine Glucose Negative (Negative) Assess/Plan/Problems-Billing Assessment:
--- NOTE | 2018-07-05 12:48 | CONSULT ---
Subjective Date of Service: 07/05/18 Interval History: Allergies Allergy/AdvReac Type Severity Reaction Status Date / Time No Known Allergies Allergy Verified 07/05/18 08:53 Home Medications Medication Instructions Recorded Confirmed Type Aspirin EC TAB* [Ecotrin EC Low 81 mg PO DAILY 06/30/14 07/05/18 History Dose 81 MG*] Atorvastatin* [Lipitor 10 MG*] 10 mg PO BEDTIME 06/30/14 07/05/18 History Lisinopril TAB* [Prinivil TAB 5 5 mg PO DAILY 09/22/17 07/05/18 History MG*] Omeprazole CAP* [Prilosec CAP* 20 20 mg PO DAILY 09/22/17 07/05/18 History MG] metFORMIN* [Glucophage 500 MG TAB 500 mg PO DAILY 09/22/17 07/05/18 History *] Metoprolol Succinate XL TAB* 25 mg PO BEDTIME 04/01/18 07/05/18 History [Toprol XL TAB*] Nitroglycerin TAB 0.4 MG* 0.4 mg SL Q5M PRN #20 tab 04/04/18 07/05/18 Rx Ticagrelor* [Brilinta 90 MG*] 90 mg PO BID #60 tab 04/04/18 07/05/18 Rx Ciprofloxacin TAB* [Cipro 500 MG 500 mg PO BID #14 tab 07/03/18 07/05/18 Rx TAB*] Finasteride TAB* [Proscar TAB*] 5 mg PO DAILY 07/03/18 07/05/18 History Tamsulosin CAP* [Flomax CAP*] 0.4 mg PO BEDTIME #30 cap 07/05/18 Rx The patient felt ill 2 days ago and went to the [facility] ED and was dx'd with a UTI. The urine C&S final report will be ready 07/06. He was prescribed Cipro and took 2 doses yesterday and 1 dose this AM. Last night he could not urinate. He took a hot shower and said he urinated several times in the shower. He has had some L axillary chest pains lasting 4 minutes. They are much less severe and not similar to the chest pains he had before his stent in 04/06. The last one was last evening. He has had some chills but no fever at home. His temp was 98.3 here just after he finished a 15 minute chill. Family History: Findings - Two half-brothers with prostate ca. Heart disease and diabetes in family. Social History: Findings - Lives with his who is his SDM. Active aguilar. Past Medical History: Findings - Coronary stent 03/2018, HTN, HL, prediabetes Review of Systems - Measurements Intake and Output: Intake and Output Last 24 Hours 07/03/18 07/04/18 07/05/18 07/06/18 06:59 06:59 06:59 06:59 Intake Total 2049 Balance 2049 Weight 212 lb Intake: IV Fluids 2049 - Review of Systems Constitutional Symptoms: Negative: Weight Gain, Weight Loss, Weakness, Fatigue, Fever, Night Sweats, Unexplained Falls, Other Dermatology: Positive: Normal HEENT: Positive: Normal Eyes: Positive: Normal Thyroid: Positive: Normal Pulmonary: Positive: Normal Cardiology: Positive: Chest Pain Gastroenterology: Positive: Normal Genital - Urinary: Positive: Dysuria Genitourinary - Male: Positive: Prostatism Musculoskeletal: Negative: Joint Pain, Joint Stiffness, Arthritis, Osteoporosis, Low Back Pain , Sciatica, Joint Deformities, Kyphoscoliosis, Other Endocrinology: Positive: Normal Hematologic/Lymphatic: Negative: Anemia, Easy Brusing, Hx Leukemia, Hx Lymphoma, Use of Anticoagulant, Use of Antiplatelet Drugs, Other Neurology: Positive: Normal Psychiatry: Positive: Normal Allergic/Immunologic: Negative: Hx Anaphylaxis, Hx Angioedema, Hx Environmental, Hx Seasonal, Athsma, Hx HIV, Immunocompromise, Swollen Glands LymphNodes, Other Objective Active Medications: Sodium Chloride (Ns 0.9% 1000 Ml*) 1,000 mls @ 1,000 mls/hr IV .PER RATE ONE Stop: 07/05/18 12:38 Last Admin: 07/05/18 11:46 Dose: 1,000 mls/hr Vital Signs - 8 hr 07/05/18 07/05/18 07/05/18 08:40 08:51 09:00 Temperature 97.6 F Pulse Rate 69 69 Respiratory 18 27 Rate Blood Pressure 118/83 (mmHg) O2 Sat by Pulse 98 98 96 Oximetry 07/05/18 07/05/18 07/05/18 09:10 09:40 10:00 Temperature Pulse Rate 65 65 Respiratory 22 15 18 Rate Blood Pressure 122/90 120/82 (mmHg) O2 Sat by Pulse 95 96 Oximetry 07/05/18 07/05/18 07/05/18 10:10 10:46 11:00 Temperature Pulse Rate 68 66 66 Respiratory 19 17 19 Rate Blood Pressure 118/78 114/82 (mmHg) O2 Sat by Pulse 97 98 99 Oximetry 07/05/18 07/05/18 07/05/18 11:10 11:40 12:00 Temperature Pulse Rate 63 66 63 Respiratory 20 16 19 Rate Blood Pressure 125/85 115/95 (mmHg) O2 Sat by Pulse 99 99 100 Oximetry 07/05/18 12:10 Temperature Pulse Rate 64 Respiratory 13 Rate Blood Pressure 130/86 (mmHg) O2 Sat by Pulse 100 Oximetry Oxygen Devices in Use Now: None Appearance: Alert, supine on ED stretcher. In good spirits. Looks comfortable. Eyes: No Scleral Icterus Neck: NL Appearance and Movements; NL JVP, No Thyroid Enlargement, Masses Respiratory: Symmetrical Chest Expansion and Respiratory Effort, Clear to Auscultation, Clear to Percussion Cardiovascular: NL Sounds; No Murmurs; No JVD, RRR, No Edema, - Abdominal: NL Sounds; No Tenderness; No Distention, No Hepatosplenomegaly, - Extremities: No Edema, No Clubbing, Cyanosis, - Skin: No Rash or Ulcers, No Nodules or Sclerosis, - - Skin dry Neurological: Alert and Oriented x 3, NL Sensation Result Diagrams: 07/05/18 09:02 07/05/18 09:02 Additional Lab and Data: Lab Results 07/05/18 07/05/18 07/05/18 Range/Units 09:02 09:02 09:02 WBC 8.9 (3.5-10.8) 10^3/ul RBC 5.17 (4.00-5.40) 10^6/ul Hgb 16.0 (14.0-18.0) g/dl Hct 46 (42-52) % MCV 90 (80-94) fL MCH 31 (27-31) pg MCHC 35 (31-36) g/dl RDW 14 (10.5-15) % Plt Count 129 L (150-450) 10^3/ul MPV 9.1 (7.4-10.4) um3 Neut % (Auto) 72.9 (38-83) % Lymph % (Auto) 10.5 L (25-47) % [place] % (Auto) 15.4 H (0-7) % Eos % (Auto) 0.5 (0-6) % Baso % (Auto) 0.7 (0-2) % Absolute Neuts (auto) 6.5 (1.5-7.7) 10^3/ul Absolute Lymphs (auto) 0.9 L (1.0-4.8) 10^3/ul Absolute Monos (auto) 1.4 H (0-0.8) 10^3/ul Absolute Eos (auto) 0 (0-0.6) 10^3/ul Absolute Basos (auto) 0.1 (0-0.2) 10^3/ul Absolute Nucleated RBC 0 10^3/ul Nucleated RBC % 0 INR (Anticoag Therapy) 1.11 H (0.77-1.02) APTT 32.6 (26.0-36.3) seconds Sodium 134 L (135-145) mmol/L Potassium 3.6 (3.5-5.0) mmol/L Chloride 104 (101-111) mmol/L Carbon Dioxide 22 (22-32) mmol/L Anion Gap 8 (2-11) mmol/L BUN 15 (6-24) mg/dL Creatinine 1.02 (0.67-1.17) mg/dL Est GFR ( Amer) 88.4 (>60) Est GFR (Non-Af Amer) 73.1 (>60) BUN/Creatinine Ratio 14.7 (8-20) Glucose 126 H (70-100) mg/dL Lactic Acid (0.5-2.0) mmol/L Calcium 8.9 (8.6-10.3) mg/dL Total Bilirubin 2.20 H (0.2-1.0) mg/dL AST 24 (13-39) U/L ALT 33 (7-52) U/L Alkaline Phosphatase 65 (34-104) U/L Troponin I 0.00 (<0.04) ng/mL Total Protein 6.8 (6.4-8.9) g/dL Albumin 3.7 (3.2-5.2) g/dL Globulin 3.1 (2-4) g/dL Albumin/Globulin Ratio 1.2 (1-3) Urine Color Urine Appearance Urine pH (5-9) Ur Specific [place] (1.010-1.030) Urine Protein (Negative) Urine Ketones (Negative) Urine Blood (Negative) Urine Nitrate (Negative) Urine Bilirubin (Negative) Urine Urobilinogen (Negative) Ur Leukocyte Esterase (Negative) Urine WBC (Auto) (Absent) Urine RBC (Auto) (Absent) Urine Bacteria (Absent) Urine Glucose (Negative) 07/05/18 07/05/18 Range/Units 09:02 09:37 WBC (3.5-10.8) 10^3/ul RBC (4.00-5.40) 10^6/ul Hgb (14.0-18.0) g/dl Hct (42-52) % MCV (80-94) fL MCH (27-31) pg MCHC (31-36) g/dl RDW (10.5-15) % Plt Count (150-450) 10^3/ul MPV (7.4-10.4) um3 Neut % (Auto) (38-83) % Lymph % (Auto) (25-47) % [place] % (Auto) (0-7) % Eos % (Auto) (0-6) % Baso % (Auto) (0-2) % Absolute Neuts (auto) (1.5-7.7) 10^3/ul Absolute Lymphs (auto) (1.0-4.8) 10^3/ul Absolute Monos (auto) (0-0.8) 10^3/ul Absolute Eos (auto) (0-0.6) 10^3/ul Absolute Basos (auto) (0-0.2) 10^3/ul Absolute Nucleated RBC 10^3/ul Nucleated RBC % INR (Anticoag Therapy) (0.77-1.02) APTT (26.0-36.3) seconds Sodium (135-145) mmol/L Potassium (3.5-5.0) mmol/L Chloride (101-111) mmol/L Carbon Dioxide (22-32) mmol/L Anion Gap (2-11) mmol/L BUN (6-24) mg/dL Creatinine (0.67-1.17) mg/dL Est GFR ( Amer) (>60) Est GFR (Non-Af Amer) (>60) BUN/Creatinine Ratio (8-20) Glucose (70-100) mg/dL Lactic Acid 1.0 (0.5-2.0) mmol/L Calcium (8.6-10.3) mg/dL Total Bilirubin (0.2-1.0) mg/dL AST (13-39) U/L ALT (7-52) U/L Alkaline Phosphatase (34-104) U/L Troponin I (<0.04) ng/mL Total Protein (6.4-8.9) g/dL Albumin (3.2-5.2) g/dL Globulin (2-4) g/dL Albumin/Globulin Ratio (1-3) Urine Color Yellow Urine Appearance Clear Urine pH 6.0 (5-9) Ur Specific [place] 1.004 L (1.010-1.030) Urine Protein Negative (Negative) Urine Ketones Negative (Negative) Urine Blood 2+ A (Negative) Urine Nitrate Negative (Negative) Urine Bilirubin Negative (Negative) Urine Urobilinogen Negative (Negative) Ur Leukocyte Esterase Negative (Negative) Urine WBC (Auto) Absent (Absent) Urine RBC (Auto) Trace(0-2/hpf) (Absent) Urine Bacteria Absent (Absent) Urine Glucose Negative (Negative) Assessment/Plan - Billing Assessment: 1. Urniary retention. Dr. Maza's office will call him with an appointment to be seen in about a week. Rx for tamusulosin phoned in to [facility]. 600 ml drained from Mcneill immediately. 2. UTI. Patient to complete his cipro rx. will call Dr. Maza's office to get urine C&S reults tomorrow. 3. Chest pain--clinically not cardiac. 4. CAD Continue ASA, statin, aticagrelor.
[2018-07-05 13:17] VITALS: BP 129/87
== END 2018-07-05 13:17 | disposition short-term general hospital (02) ==
LOC: ED 08:21
DX: R07.89 Other chest pain (principal); N39.0 Urinary tract infection, site not specified; R31.9 Hematuria, unspecified; N40.0 Benign prostatic hyperplasia without lower urinary tract symptoms; K57.30 Diverticulosis of large intestine without perforation or abscess without bleeding; I25.10 Atherosclerotic heart disease of native coronary artery without angina pectoris; I10 Essential (primary) hypertension; Z87.442 Personal history of urinary calculi
CPT/HCPCS: 36415; 51702; 74176; 80053; 81003; 81015; 83605; 84484; 85025; 85610; 85730; 87040; 93005; 96365; 99283; J0696

== ENCOUNTER 2018-07-06 18:16 | Emergency (ER) | payer MEDICARE, BC ==
[2018-07-06 23:06] LABS: Urine Appearance Cloudy; Urine Blood 3+ (Negative); Urine Color Yellow; Urine Ketones Negative (Negative); Urine Protein 1+(30 mg/dL) (Negative); Urine Red Blood Cell 3+(>10/hpf) (Absent); Urine Specific Gravity 1.021 (1.010-1.030); Urine Urobilinogen Negative (Negative); Urine White Blood Cell 3+(>20/hpf) (Absent)
[2018-07-06 23:06] LABS: ABS Basophils 0.1 10^3/ul (0-0.2); ABS Eosinophils 0.3 10^3/ul (0-0.6); ABS Lymphocytes 1.2 10^3/ul (1.0-4.8); ABS Monocytes 0.8 10^3/ul (0-0.8); ABS Neutrophils 4.4 10^3/ul (1.5-7.7); ABS Nucleated RBC 0 10^3/ul; Eosinophil % 4.3 % (0-6); Hematocrit 44 % (42-52); Lymphocyte % 17.5 % (25-47); Mean Corpuscular HGB Conc 34 g/dl (31-36); Mean Corpuscular Hemoglobin 31 pg (27-31); Mean Corpuscular Volume 89 fL (80-94); Mean Platelet Volume 8.9 um3 (7.4-10.4); Nucleated Red Blood Cells % 0.1; Platelet Count 171 10^3/ul (150-450); Red Blood Count 4.89 10^6/ul (4.00-5.40); Red Cell Distribution Width 14 % (10.5-15); White Blood Count 6.8 10^3/ul (3.5-10.8)
[2018-07-06 23:23] LABS: EGFR Non-African American 73.9 (>60)
--- NOTE | 2018-07-06 23:59 | ED ---
GI/ HPI - HPI Summary HPI Summary: This patient is a 67-year-old male who presents to the emergency department with a chief complaint of having difficulty urinating. The patient has been diagnosed with a UTI, urinary retention for which the patient has a urinary Mcneill catheter. He reports that this morning he expressed approximately 1300 cc of urine however, afterwards he did not see any urine in the leg bag for a couple hours. The patient started having pressure in the lower abdomen therefore he decided to come to the emergency room for further workup and management. Patient denies any fever, chills, denies any shortness of breath, chest pain or palpitations. - History of Current Complaint Chief Complaint: EDUrogenitalProblems Time Seen by Provider: 07/06/18 23:33 Stated Complaint: ABD PRESSURE/PAIN Pain Intensity: 3 - Additional Pertinent History Primary Care Physician: SHAR - Allergy/Home Medications Allergies/Adverse Reactions: Allergies Allergy/AdvReac Type Severity Reaction Status Date / Time No Known Allergies Allergy Verified 07/06/18 18:51 PMH/Surg Hx/FS Hx/Imm Hx Previously Healthy: Yes Endocrine/Hematology History: Reports: Hx Diabetes - PRE-DM Denies: Hx Sickle Cell Disease Cardiovascular History: Reports: Hx Coronary Artery Disease, Hx Hypercholesterolemia, Hx Hypertension - ON MEDS Respiratory History: Reports: Hx Pneumonia GI History: Reports: Hx Gastroesophageal Reflux Disease History: Reports: Hx Kidney Stones - LEFT, Other Problems/Disorders - ENLARGE PROSTATE, BPH Musculoskeletal History: Denies: Hx Arthritis, Hx Osteoporosis Sensory History: Reports: Hx Contacts or Glasses - GLASSES, Hx Hearing Aid, Hx Hearing Problem Opthamlomology History: Reports: Hx Contacts or Glasses - GLASSES Neurological History: Denies: Hx Seizures, Hx Spinal Cord Injury, Hx Transient Ischemic Attacks ( TIA) Psychiatric History: Denies: Hx Anxiety - Surgical History Surgery Procedure, Year, and Place: 07/02/2014-CYSTOSCOPY AND LITHOTRIPSY WITH LEFT STENT INSERTION-[facility] [place], HEART CATH-2010 Hx Anesthesia Reactions: No Infectious Disease History: No Infectious Disease History: Denies: Traveled Outside the [place] in Last 30 Days - Family History Known Family History: Negative: Renal Disease - Social History Alcohol Use: None Hx Substance Use: No Substance Use Type: Reports: None Hx Tobacco Use: No Smoking Status (MU): Never Smoked Tobacco Have You Smoked in the Last Year: No Review of Systems Constitutional: Negative Eyes: Negative ENT: Negative Cardiovascular: Negative Respiratory: Negative Gastrointestinal: Negative Positive: see HPI, pain, other - unable to urinate through the Mcneill catheter Musculoskeletal: Negative Skin: Negative Neurological: Negative Psychological: Normal All Other Systems Reviewed And Are Negative: Yes Physical Exam - Summary Physical Exam Summary: VITAL SIGNS: Reviewed. GENERAL: Patient is a well-developed and nourished male who is lying comfortable in the stretcher. Patient is not in any acute respiratory distress. HEAD AND FACE: No signs of trauma. No ecchymosis, hematomas or skull depressions. No sinus tenderness. EYES: PERRLA, EOMI x 2, No injected conjunctiva, no nystagmus. EARS: Hearing grossly intact. Ear canals and tympanic membranes are within normal limits. MOUTH: Oropharynx within normal limits. NECK: Supple, trachea is midline, no adenopathy, no JVD, no carotid bruit, no c- spine tenderness, neck with full ROM. CHEST: Symmetric, no tenderness at palpation LUNGS: Clear to auscultation bilaterally. No wheezing or crackles. CVS: Regular rate and rhythm, S1 and S2 present, no murmurs or gallops appreciated. ABDOMEN: Soft, non-tender. No signs of distention. No rebound no guarding, and no masses palpated. Bowel sounds are normal. EXTREMITIES: FROM in all major joints, no edema, no cyanosis or clubbing. NEURO: Alert and oriented x 3. No acute neurological deficits. Speech is normal and follows commands. SKIN: Warm. The patient is salbador : Mcneill catheter in place and after irrigation he has approximately 100 cc of urine. Triage Information Reviewed: Yes Vital Signs On Initial Exam: Initial Vitals Temp Pulse Resp BP Pulse Ox 98.5 F 83 16 128/77 96 07/06/18 18:39 07/06/18 18:39 07/06/18 18:39 07/06/18 18:39 07/06/18 18:39 Vital Signs Reviewed: Yes Diagnostics - Vital Signs Vital Signs Temp Pulse Resp BP Pulse Ox 07/06/18 20:10 97.8 F 77 122/79 100 07/06/18 18:39 98.5 F 83 16 128/77 96 - Laboratory Lab Results: Lab Results 07/06/18 07/06/18 07/06/18 Range/Units 22:53 22:59 22:59 WBC 6.8 (3.5-10.8) 10^3/ul RBC 4.89 (4.00-5.40) 10^6/ul Hgb 15.0 (14.0-18.0) g/dl Hct 44 (42-52) % MCV 89 (80-94) fL MCH 31 (27-31) pg MCHC 34 (31-36) g/dl RDW 14 (10.5-15) % Plt Count 171 (150-450) 10^3/ul MPV 8.9 (7.4-10.4) um3 Neut % (Auto) 65.5 (38-83) % Lymph % (Auto) 17.5 L (25-47) % [place] % (Auto) 11.7 H (0-7) % Eos % (Auto) 4.3 (0-6) % Baso % (Auto) 1.0 (0-2) % Absolute Neuts (auto) 4.4 (1.5-7.7) 10^3/ul Absolute Lymphs (auto) 1.2 (1.0-4.8) 10^3/ul Absolute Monos (auto) 0.8 (0-0.8) 10^3/ul Absolute Eos (auto) 0.3 (0-0.6) 10^3/ul Absolute Basos (auto) 0.1 (0-0.2) 10^3/ul Absolute Nucleated RBC 0 10^3/ul Nucleated RBC % 0.1 Sodium 137 (135-145) mmol/L Potassium 3.5 (3.5-5.0) mmol/L Chloride 108 (101-111) mmol/L Carbon Dioxide 22 (22-32) mmol/L Anion Gap 7 (2-11) mmol/L BUN 18 (6-24) mg/dL Creatinine 1.01 (0.67-1.17) mg/dL Est GFR ( Amer) 89.4 (>60) Est GFR (Non-Af Amer) 73.9 (>60) BUN/Creatinine Ratio 17.8 (8-20) Glucose 141 H (70-100) mg/dL Lactic Acid (0.5-2.0) mmol/L Calcium 8.8 (8.6-10.3) mg/dL Total Bilirubin 1.00 (0.2-1.0) mg/dL AST 32 (13-39) U/L ALT 40 (7-52) U/L Alkaline Phosphatase 70 (34-104) U/L C-Reactive Protein 76.37 H (<8.01) mg/L Total Protein 6.6 (6.4-8.9) g/dL Albumin 3.6 (3.2-5.2) g/dL Globulin 3.0 (2-4) g/dL Albumin/Globulin Ratio 1.2 (1-3) Urine Color Yellow Urine Appearance Cloudy Urine pH 5.0 (5-9) Ur Specific [place] 1.021 (1.010-1.030) Urine Protein 1+(30 mg/dl) A (Negative) Urine Ketones Negative (Negative) Urine Blood 3+ A (Negative) Urine Nitrate Negative (Negative) Urine Bilirubin Negative (Negative) Urine Urobilinogen Negative (Negative) Ur Leukocyte Esterase 2+ A (Negative) Urine WBC (Auto) 3+(>20/hpf) A (Absent) Urine RBC (Auto) 3+(>10/hpf) A (Absent) Ur Squamous Epith Cells Present A (Absent) Urine Bacteria Absent (Absent) Urine Glucose Negative (Negative) Urine Ascorbic Acid * A (Negative) 07/06/18 Range/Units 22:59 WBC (3.5-10.8) 10^3/ul RBC (4.00-5.40) 10^6/ul Hgb (14.0-18.0) g/dl Hct (42-52) % MCV (80-94) fL MCH (27-31) pg MCHC (31-36) g/dl RDW (10.5-15) % Plt Count (150-450) 10^3/ul MPV (7.4-10.4) um3 Neut % (Auto) (38-83) % Lymph % (Auto) (25-47) % [place] % (Auto) (0-7) % Eos % (Auto) (0-6) % Baso % (Auto) (0-2) % Absolute Neuts (auto) (1.5-7.7) 10^3/ul Absolute Lymphs (auto) (1.0-4.8) 10^3/ul Absolute Monos (auto) (0-0.8) 10^3/ul Absolute Eos (auto) (0-0.6) 10^3/ul Absolute Basos (auto) (0-0.2) 10^3/ul Absolute Nucleated RBC 10^3/ul Nucleated RBC % Sodium (135-145) mmol/L Potassium (3.5-5.0) mmol/L Chloride (101-111) mmol/L Carbon Dioxide (22-32) mmol/L Anion Gap (2-11) mmol/L BUN (6-24) mg/dL Creatinine (0.67-1.17) mg/dL Est GFR ( Amer) (>60) Est GFR (Non-Af Amer) (>60) BUN/Creatinine Ratio (8-20) Glucose (70-100) mg/dL Lactic Acid 1.4 (0.5-2.0) mmol/L Calcium (8.6-10.3) mg/dL Total Bilirubin (0.2-1.0) mg/dL AST (13-39) U/L ALT (7-52) U/L Alkaline Phosphatase (34-104) U/L C-Reactive Protein (<8.01) mg/L Total Protein (6.4-8.9) g/dL Albumin (3.2-5.2) g/dL Globulin (2-4) g/dL Albumin/Globulin Ratio (1-3) Urine Color Urine Appearance Urine pH (5-9) Ur Specific [place] (1.010-1.030) Urine Protein (Negative) Urine Ketones (Negative) Urine Blood (Negative) Urine Nitrate (Negative) Urine Bilirubin (Negative) Urine Urobilinogen (Negative) Ur Leukocyte Esterase (Negative) Urine WBC (Auto) (Absent) Urine RBC (Auto) (Absent) Ur Squamous Epith Cells (Absent) Urine Bacteria (Absent) Urine Glucose (Negative) Urine Ascorbic Acid (Negative) Result Diagrams: 07/06/18 22:59 07/06/18 22:59 Lab Statement: Any lab studies that have been ordered have been reviewed, and results considered in the medical decision making process. GIGU Course/Dx - Course Assessment/Plan: Patient is a 67-year-old male who presents to the emergency department with the chief complaint of malfunction of the urinary Mcneill catheter. In the ED course the catheter was irrigated and now is fully functional. Blood test results without any significant abnormality. Urinalysis contaminated. At this point the patient is not feeling any pressure and the urinary Mcneill catheter is working appropriate. I discussed all the findings and test results with the patient. Patient was instructed to return to the emergency room immediately if any of the symptoms return or worsens. Plan of care was discussed with the patient and understands and agrees. All questions were answered at patient satisfaction. There were no further complaints or concerns. Lung exam before discharge: CTA B/L. Good air exchange. No wheezing or crackles heard. CVS: S1 and S2 present. No murmurs appreciated. Patient is alert and oriented x 3. Patient is hemodynamically stable. Patient will be discharged home with follow up PCP in the next 2-3 days - Diagnoses Provider Diagnoses: Urinary catheter (Mcneill) change required Discharge - Sign-Out/Discharge Documenting (check all that apply): Patient Departure - Discharge Plan Condition: Improved Disposition: HOME Patient Education Materials: Mcneill Catheter Placement and Care (ED) Referrals: Jacqueline MILLER,Vida Moore [Primary Care Provider] - Additional Instructions: Follow with the primary care physician as well as urology. Return to the emergency department if any symptoms worsens. - Billing Disposition and Condition Condition: IMPROVED Disposition: Home
[2018-07-07 01:16] VITALS: BP 121/74
== END 2018-07-07 00:35 | disposition home or self-care (01) ==
LOC: ED 18:16
DX: T83.9XXA Unspecified complication of genitourinary prosthetic device, implant and graft, initial encounter (principal); I10 Essential (primary) hypertension
CPT/HCPCS: 36415; 80053; 81003; 81015; 83605; 85025; 86140; 87086; 99282

== ENCOUNTER 2019-12-18 06:24 | Day surgery (SDC) | payer BC, MEDICARE, OTHER ==
[~2019-12-18 06:24] MED LIST: Acetaminophen TAB* 325 MG PO PRN; Buffered Lidocaine 1% SYRIN* 1 ML/SYRINGE INTRADERM ONE; mitoMYcin 0.2 MG (0.02%) in Sterile Water for Inj* 1 ML OPHTHALMIC SCH
[2019-12-18] MEDS ORDERED: Midazolam* 1 MG/ML 5 ML VIAL (5 MG) ONE (07:26)
[2019-12-18] MEDS ORDERED: fentaNYL* 50 MCG/ML 2 ML VIAL (100 MCG VIAL) ONE (07:32)
[2019-12-18 10:18] VITALS: BP 123/81
--- NOTE | 2019-12-18 12:55 | OP ---
OPERATIVE NOTE: DATE OF OPERATION: 12/18/19 DATE OF : 52 SURGEON: Ger Katz MD. ANESTHESIA: Local with MAC. PREOPERATIVE DIAGNOSIS: Uncontrolled glaucoma, left eye. POSTOPERATIVE DIAGNOSIS: Uncontrolled glaucoma, left eye. OPERATIVE PROCEDURE: XEN stent, left eye. COMPLICATIONS: None. DESCRIPTION OF PROCEDURE: The patient was prepped and draped in the usual sterile fashion. Lid spec ulum was placed in the left eye. The eye rotated inferiorly with a 6-0 silk traction suture through the superior limbus. Marking was made 7 mm posterior to the limbus and then 2.5 mm posterior to the limbus with the calipers. A paracentesis was made at the 2 o'clock position with a 75-blade. Miostat injected into the anterior chamber. The XEN hook and eye sewing machine operator was inserted at the 7 mm vane subconjunctivall y entering the sclera at 2.5 mm and then into the anterior chamber. The XEN device was deployed witho ut difficulty with immediate bleb formation. Mitomycin C 0.2 mg/mL, 0.2 mL was injected subconjunctiv ally in the superior fornix. Anterior chamber was irrigated with balanced salt solution and the trac tion suture removed. [id number]/[facility] #: [id number]
[2019-12-18] MEDS ORDERED: Neomycin/Polymy/Dex OPTH.SUSP* MAXITROL 0.1% 5 ML ONE (13:26)
[2019-12-18] MEDS ORDERED: Lidocaine 1% MPF ** 5 ML VIAL ONE (13:26)
[2019-12-18] MEDS ORDERED: Lidocaine 2% w/ EPI 1:200,000* 20 ML SDV VIAL ONE (13:26)
[2019-12-18] MEDS ORDERED: Povidone Iodine 5% OPTH* 30 ML BTL ONE (13:26)
[2019-12-18] MEDS ORDERED: Proparacaine 0.5% OPHTH.SOL* 15 ML BTL ONE (13:26)
== END 2019-12-18 08:16 | disposition home or self-care (01) ==
LOC: OREAST 06:24
PROVIDERS: ATTEND Specialist
DX: H40.1121 Primary open-angle glaucoma, left eye, mild stage (principal); I10 Essential (primary) hypertension; E11.9 Type 2 diabetes mellitus without complications; Z79.84 Long term (current) use of oral hypoglycemic drugs; E78.5 Hyperlipidemia, unspecified; I25.10 Atherosclerotic heart disease of native coronary artery without angina pectoris; E66.3 Overweight; M54.5 Low back pain; N40.0 Benign prostatic hyperplasia without lower urinary tract symptoms; E80.4 Gilbert syndrome; M54.12 Radiculopathy, cervical region; R33.9 Retention of urine, unspecified; M19.90 Unspecified osteoarthritis, unspecified site
CPT/HCPCS: A9270-GY; C1725; J2250; J3010; J9280

== ENCOUNTER 2020-01-08 06:34 | Day surgery (SDC) | payer BC, MEDICARE, OTHER ==
[~2020-01-08 06:34] MED LIST changes: -mitoMYcin 0.2 MG (0.02%) in Sterile Water for Inj* 1 ML OPHTHALMIC SCH; +mitoMYcin PWD* 0.2 MG in Sterile Water for Inj* 1 ML OPHTHALMIC SCH
[2020-01-08] MEDS ORDERED: Carbachol 0.01% OPH.SOL* 1.5 ML OPHTH.SOLN ONE (07:19)
[2020-01-08] MEDS ORDERED: Midazolam* 1 MG/ML 2 ML VIAL (2 MG) ONE ×2 (07:40→08:09)
[2020-01-08 08:51] VITALS: BP 110/79
[2020-01-08] MEDS ORDERED: Proparacaine 0.5% OPHTH.SOL* 15 ML BTL ONE ×2 (09:29→10:06)
[2020-01-08] MEDS ORDERED: Povidone Iodine 5% OPTH* 30 ML BTL ONE ×2 (09:29→10:05)
[2020-01-08] MEDS ORDERED: Phenylephrine OPHTH SOL 2.5%* 2 ML ONE (09:29)
[2020-01-08] MEDS ORDERED: Lidocaine 1% MPF ** 5 ML VIAL ONE ×2 (09:29→10:05)
[2020-01-08] MEDS ORDERED: Ketorolac 0.5% OPHTH (NF) 0.5 % 5 ML BTL ONE (09:29)
[2020-01-08] MEDS ORDERED: Cyclopentolate 1% OPTH.SOL* 2 ML BTL ONE (09:29)
[2020-01-08] MEDS ORDERED: Neomycin/Polymy/Dex OPTH.SUSP* MAXITROL 0.1% 5 ML ONE ×2 (09:29→10:05)
[2020-01-08] MEDS ORDERED: acetaZOLAMIDE TAB* 250 MG ONE (09:29)
[2020-01-08] MEDS ORDERED: Lidocaine 2% w/ EPI 1:200,000* 20 ML SDV VIAL ONE ×2 (09:29→10:05)
--- NOTE | 2020-01-08 12:31 | OP ---
DATE OF OPERATION: 01/08/20 [facility] DATE OF : 52 SURGEON: Ger Katz MD. ANESTHESIA: Local with MAC. PRE-OP DIAGNOSIS: Uncontrolled glaucoma, right eye. POST-OP DIAGNOSIS: Uncontrolled glaucoma, right eye OPERATIVE PROCEDURE: XEN stent, right eye. COMPLICATIONS: None. DESCRIPTION OF PROCEDURE: The patient was prepped and draped in the usual sterile fashion. Lid speculum was placed. XEN stent inspected. A vane 7-mm posterior to the limbus was made with a marking pen at 12 o'clock, and also a 2.5.mm. A successful traction suture was placed through the superior cornea and the eye rotated inferiorly. A paracentesis was made at 2 o'clock. Miostat instilled into the anterior chamber. The XEN stent costuming supervisor was inserted subconjunctivally at the 7-mm vane, engaged sclera to 2.5 mm vane and entered into the anterior chamber with good visualization of the needle, the device deployed the XEN stent in good position. Mitomycin C 0.2 mg/mL, 0.1 mL was injected subconjunctival superiorly. The tube was primed with balanced salt solution, and then the placement checked with the gonioprism. The traction suture removed. [id number]/[facility] #: [id number] MTDD
== END 2020-01-08 08:38 | disposition home or self-care (01) ==
LOC: OREAST 06:34
PROVIDERS: ATTEND Specialist
DX: H40.1133 Primary open-angle glaucoma, bilateral, severe stage (principal); H40.811 Glaucoma with increased episcleral venous pressure, right eye; H25.13 Age-related nuclear cataract, bilateral; I10 Essential (primary) hypertension; I25.10 Atherosclerotic heart disease of native coronary artery without angina pectoris; E78.00 Pure hypercholesterolemia, unspecified; N40.0 Benign prostatic hyperplasia without lower urinary tract symptoms; E78.5 Hyperlipidemia, unspecified; E11.9 Type 2 diabetes mellitus without complications; Z88.8 Allergy status to other drugs, medicaments and biological substances
CPT/HCPCS: A9270-GY; C1725; J2250; J9280

== ENCOUNTER 2020-01-22 10:50 | Day surgery (SDC) | payer OTHER ==
[~2020-01-22 10:50] MED LIST changes: +Cyclopentolate 1% OPTH.SOL* 2 ML BTL ONE; +Ketorolac 0.5% OPHTH (NF) 0.5 % 5 ML BTL ONE; +Lidocaine 1% MPF ** 5 ML VIAL ONE; +Lidocaine 2% w/ EPI 1:200,000* 20 ML SDV VIAL ONE; +Neomycin/Polymy/Dex OPTH.SUSP* MAXITROL 0.1% 5 ML ONE; +Phenylephrine OPHTH SOL 2.5%* 2 ML ONE; +Povidone Iodine 5% OPTH* 30 ML BTL ONE; +Proparacaine 0.5% OPHTH.SOL* 15 ML BTL ONE; +acetaZOLAMIDE TAB* 250 MG ONE
[2020-01-22] MEDS ORDERED: Midazolam* 1 MG/ML 5 ML VIAL (5 MG) ONE (12:01)
[2020-01-22] MEDS ORDERED: fentaNYL* 50 MCG/ML 2 ML VIAL (100 MCG VIAL) ONE (12:01)
[2020-01-22] MEDS ORDERED: BSS OPTH.SOL* BTL ONE (14:17)
[2020-01-22 14:39] VITALS: BP 111/76
--- NOTE | 2020-01-23 01:09 | OP ---
OPERATIVE NOTE: DATE OF OPERATION: 01/22/20 - [facility] DATE OF : 52 SURGEON: Ger Katz M.D. PREOPERATIVE DIAGNOSIS: Cataract and glaucoma, left eye. POSTOPERATIVE DIAGNOSIS: Cataract and glaucoma, left eye. OPERATIVE PROCEDURE: Extracapsular cataract extraction with intraocular lens implant and revision of Xen stent, left eye. PROCEDURE: The patient was brought to the operating room after being given 1/2 % Alcaine with epinephrine drops in the preoperative area. The eye was prepped and draped in the usual sterile fashion. Sterile drape and eyelid speculum were placed. Again, topical 1/2% Alcaine with epinephrine was given. A paracentesis incision was made at the 3 o'clock position with the No.75 blade. Clear cornea incision 2.2 x 2.2-mm was created at the 6 o'clock position starting at the anterior limbus using the 2.2-mm keratome. The anterior chamber was irrigated with 0.4 mL of 1% non-preservative intracameral lidocaine and filled with DisCoVisc. A capsulorrhexis was completed using the cystotome and the Utrata forceps. Hydrodissection was performed with balanced salt solution. The lens nucleus was removed with the Phacoemulsification handpiece without incident. Cortex was removed with the irrigation-aspiration handpiece. The capsular bag was re-inflated using DisCoVisc and an SN60WF 13.5 implant was inserted with the shooter. The irrigation-aspiration handpiece was used to remove all residual DisCoVisc. The eye was refilled with balanced salt solution and the wound checked and found to be watertight. Topical Maxitrol drops were given. After the cataract part of the operation was complete, I inspected the previous Xen stent and it was found to be pretty far into the anterior chamber with only a small amount subconjunctival. I opened the conjunctiva with Kina scissors from radially at about 1 o'clock position, dissected with Kina scissors and removed extra scarred Tenon's capsule. I gave 2% lidocaine with epinephrine, located the previous Xen stent and attempted to try to pull it back and reposition it into the subconjunctival space, but I was having too much difficulty doing that, so I placed a new Xen stent with its shooter at a 12 o'clock position without difficulty. I closed the conjunctiva using a running locking 9-0 Vicryl suture. Mitomycin-C 0.2 mg/mL, 0.2 mL was injected subconjunctivally and then through the anterior chamber, I removed the previous Xen stent. All wounds were checked and found to be watertight. [id number]/[facility] #: [id number] [facility]
== END 2020-01-22 14:28 | disposition home or self-care (01) ==
LOC: OREAST 10:50
PROVIDERS: ATTEND Specialist
DX: H25.812 Combined forms of age-related cataract, left eye (principal); T85.328A Displacement of other ocular prosthetic devices, implants and grafts, initial encounter; H40.1123 Primary open-angle glaucoma, left eye, severe stage; I10 Essential (primary) hypertension; E78.00 Pure hypercholesterolemia, unspecified; E78.5 Hyperlipidemia, unspecified; E11.9 Type 2 diabetes mellitus without complications; Z79.84 Long term (current) use of oral hypoglycemic drugs
CPT/HCPCS: A9270-GY; C1725; J2250; J3010; J9280; V2632

== ENCOUNTER 2020-01-29 11:55 | Day surgery (SDC) | payer OTHER ==
[~2020-01-29 11:55] MED LIST changes: -Acetaminophen TAB* 325 MG PO PRN; +Buffered Lidocaine 1% SYRIN 1 ml INTRADERM ONE; -Buffered Lidocaine 1% SYRIN* 1 ML/SYRINGE INTRADERM ONE; +Cyclopentolate 1% OPTH.SOL 2 ML BTL ONE; -Cyclopentolate 1% OPTH.SOL* 2 ML BTL ONE; -Lidocaine 1% MPF ** 5 ML VIAL ONE; +Lidocaine 1% MPF 5 ML VIAL ONE; +Lidocaine 2% w/ EPI 1:200,000 MPF 20 ML SDV VIAL ONE; -Lidocaine 2% w/ EPI 1:200,000* 20 ML SDV VIAL ONE; +Neomycin/Polymy/Dex OPTH.SUSP MAXITROL 0.1% 5 ML ONE; -Neomycin/Polymy/Dex OPTH.SUSP* MAXITROL 0.1% 5 ML ONE; +Phenylephrine 2.5% OPHTH SOL 2 ml BTL ONE; -Phenylephrine OPHTH SOL 2.5%* 2 ML ONE; +Povidone Iodine 5% OPTH 30 ML BTL ONE; -Povidone Iodine 5% OPTH* 30 ML BTL ONE; +Proparacaine 0.5% OPHTH.SOL 15 ML BTL ONE; -Proparacaine 0.5% OPHTH.SOL* 15 ML BTL ONE; -acetaZOLAMIDE TAB* 250 MG ONE; +mitoMYcin 0.2 MG (0.02%) in Sterile Water for Inj* 1 ML OPHTHALMIC SCH; -mitoMYcin PWD* 0.2 MG in Sterile Water for Inj* 1 ML OPHTHALMIC SCH
[2020-01-29] MEDS ORDERED: Midazolam 5 mg/5 ml VIAL 1 mg/ml 5 ml VIAL (5 mg) ONE (13:51)
[2020-01-29 14:58] VITALS: BP 129/81
== END 2020-01-29 15:09 | disposition home or self-care (01) ==
LOC: OREAST 11:55
PROVIDERS: ATTEND Specialist
DX: H25.811 Combined forms of age-related cataract, right eye (principal); H40.1133 Primary open-angle glaucoma, bilateral, severe stage; E11.9 Type 2 diabetes mellitus without complications; I25.10 Atherosclerotic heart disease of native coronary artery without angina pectoris; E80.4 Gilbert syndrome; N40.0 Benign prostatic hyperplasia without lower urinary tract symptoms; I10 Essential (primary) hypertension; E78.00 Pure hypercholesterolemia, unspecified; M54.12 Radiculopathy, cervical region; E78.5 Hyperlipidemia, unspecified; Z96.1 Presence of intraocular lens